=== PATIENT | male | born 1990 | race Caucasian/White ===

== ENCOUNTER 2018-03-29 17:14 | Observation (INO) | payer BC, OTHER ==
[2018-03-29] MEDS ORDERED: NA CHLORIDE 0.9% 1,000 ML ONE ×2 (18:08→20:36)
[2018-03-29] MEDS ORDERED: ONDANSETRON 4 MG/2 ML VIAL ONE (18:08)
[2018-03-29] MEDS ORDERED: MORPHINE 4 MG/ML SYR ONE (18:08)
[2018-03-29 18:44] LABS: ALT/SGPT 124 U/L (12-78); AST/SGOT 65 U/L (15-37); Albumin 4.7 g/dL (3.4-5.0); Alkaline Phosphatase 121 U/L (45-117); BUN Blood Urea Nitrogen 17 mg/dL (7-18); Bicarbonate 27 mmol/L (21-32); Bilirubin Direct 0.2 mg/dL (0-0.2); Bilirubin Total 0.7 mg/dL (0.2-1.0); Glucose Level 95 mg/dL (74-106); Lipase 146 U/L (73-393); Potassium 3.8 mmol/L (3.5-5.1); Protein, Total 8.7 g/dL (6.4-8.2); Sodium Level 141 mmol/L (136-145)
[2018-03-29 18:46] LABS: Absolute Lymphocytes (CBC) 2.4 K/uL (0.7-4.9); Absolute Monocytes 1.4 K/uL (0.1-1.3); Absolute Neutrophil 15.8 K/uL (1.8-8.0); Basophils % 0.3 % (0-1.3); Hematocrit 45.6 % (39.6-49.0); Lymphocytes % 12.4 % (15.3-44.8); MCH 30.1 pg (27.0-35.0); MCV 87.6 fL (80-100); MPV 8.8 fL (7.6-11.3); RBC Red Blood Cell Count 5.21 M/uL (4.33-5.43)
[2018-03-29 19:28] LABS: Blood Morphology Comment NOT SEEN (NOT SEEN); Platelet Estimate ADEQ; Urine White Blood Cell Casts OK
--- NOTE | 2018-03-29 20:07 | RAD REPORT ---
EXAM DESCRIPTION: CT - Abdomen Pelvis W Contrast - 03/29/2018 7:50 pm CLINICAL HISTORY: Right lower quadrant pain COMPARISON: CT study December 2014 TECHNIQUE: Biphasic, helical CT imaging of the abdomen and pelvis was performed following 100 ml non -ionic IV contrast. Oral contrast was given. All CT scans are performed using dose optimization technique as appropriate and may include automated exposure control or mA/KV adjustment according to patient size. FINDINGS: No suspicious findings in the lung bases. Liver shows diffuse fatty infiltration. No focal liver lesion. Spleen and pancreas show no suspicious findings. Gallbladder and biliary tree are also without suspicious finding. Symmetric renal function is seen with no hydronephrosis or suspicious renal mass. No pyelonephritis o r acute renal parenchymal process. Urinary bladder is normal. No gastric dilatation or gastric wall thickening. No acute small bowel finding. Moderate stool volume is present in the nondilated colon. Oral contrast has reached the hepatic flexure. No contrast is pr esent in the appendix. There are several small mesenteric lymph nodes in the right lower quadrant. Th e appendix is 10-2011 mm in diameter. No appendicolith. The appendix was 5- 6 mm in 2015. Senior of th e appendix are slightly thickened. There is trace stranding in the adjacent fat. No free air, free fluid or other inflammatory stranding. No hernia, mass or bulky lymphadenopathy. N o adrenal abnormality. No suspicious bony findings. IMPRESSION: Early appendicitis changes are present seen as mild dilatation, mild wall thickening and trace stranding in the adjacent fat. A few small mesenteric lymph nodes are present. Appendix findings represent a change from the 2015 comparison. No free air or free fluid. Diffuse fatty infiltration similar to comparison.
--- NOTE | 2018-03-29 20:12 | EDPHYS ---
Physician Documentation [facility] Name: Girish Llamas Age: 27 yrs Sex: Male : 1990 Arrival Date: 03/29/2018 Time: 17:19 Bed 24 Private MD: ED Physician Jose Galarza HPI: 03/29 19:36 This 27 yrs old Male presents to ER via Ambulatory with complaints of pm1 Abdominal Pain. 19:36 The patient presents with abdominal pain right lower quadrant. Onset: The pm1 symptoms/episode began/occurred today, at 15:30. The symptoms do not radiate. Associated signs and symptoms: Pertinent negatives: nausea, vomiting, and diarrhea, chest pain, dysuria, fever, shortness of breath, testicular pain. The symptoms are described as achy, constant. Modifying factors: The symptoms are alleviated by nothing, the symptoms are aggravated by touching the area, walking. Severity of pain: in the emergency department the pain is actually worse. The patient has not experienced similar symptoms in the past. The patient has not recently seen a physician, the patient's primary care provider is Dr. Mai. Historical: - Allergies: 17:30 No Known Allergies; sv - Home Meds: 17:30 Seroquel Oral [Active]; sv - PMHx: 17:30 Bipolar disorder; insomnia; sv - PSHx: 17:30 Tonsillectomy; Adenoids; sv - Immunization history:: Adult Immunizations up to date. - Social history:: Smoking status: Patient/guardian denies using tobacco. - Ebola Screening: : No symptoms or risks identified at this time. ROS: 19:37 Constitutional: Negative for fever, chills, and weight loss, Eyes: Negative for injury, pm1 pain, redness, and discharge, ENT: Negative for injury, pain, and discharge, Neck: Negative for injury, pain, and swelling, Cardiovascular: Negative for chest pain, palpitations, and edema, Respiratory: Negative for shortness of breath, cough, wheezing, and pleuritic chest pain. 19:37 Back: Negative for injury and pain, : Negative for injury, bleeding, discharge, and swelling, MS/Extremity: Negative for injury and deformity, Skin: Negative for injury, rash, and discoloration, Neuro: Negative for headache, weakness, numbness, tingling, and seizure. 19:37 Abdomen/GI: Positive for abdominal pain, of the right lower quadrant, Negative for nausea, vomiting, and diarrhea. Exam: 19:37 Constitutional: This is a well developed, well nourished patient who is awake, alert, pm1 and in no acute distress. Head/Face: Normocephalic, atraumatic. Eyes: Pupils equal round and reactive to light, extra-ocular motions intact. Lids and lashes normal. Conjunctiva and sclera are non-icteric and not injected. Cornea within normal limits. Periorbital areas with no swelling, redness, or edema. ENT: Nares patent. No nasal discharge, no septal abnormalities noted. Tympanic membranes are normal and external auditory canals are clear. Oropharynx with no redness, swelling, or masses, exudates, or evidence of obstruction, uvula midline. Mucous membranes moist. Neck: Trachea midline, no thyromegaly or masses palpated, and no cervical lymphadenopathy. Supple, full range of motion without nuchal rigidity, or vertebral point tenderness. No Meningismus. Chest/axilla: Normal chest wall appearance and motion. Nontender with no deformity. No lesions are appreciated. Cardiovascular: Regular rate and rhythm with a normal S1 and S2. No gallops, murmurs, or rubs. Normal PMI, no JVD. No pulse deficits. Respiratory: Lungs have equal breath sounds bilaterally, clear to auscultation and percussion. No rales, rhonchi or wheezes noted. No increased work of breathing, no retractions or nasal flaring. 19:37 Back: No spinal tenderness. No costovertebral tenderness. Full range of motion. Skin: Warm, dry with normal turgor. Normal color with no rashes, no lesions, and no evidence of cellulitis. MS/ Extremity: Pulses equal, no cyanosis. Neurovascular intact. Full, normal range of motion. 19:37 Abdomen/GI: Inspection: abdomen appears normal, Bowel sounds: normal, Palpation: soft, moderate abdominal tenderness, in the right lower quadrant, mass, is not appreciated, rebound tenderness, is appreciated in the right lower quadrant and left lower quadrant. 19:37 Neuro: Orientation: is normal, Motor: is normal, moves all fours. Vital Signs: 17:30 BP 136 / 85; Resp 22; Temp 97.9; Pulse Ox 99% ; Weight 89.81 kg; Height 5 ft. 6 in. sv (167.64 cm); Pain 6/10; 19:31 BP 121 / 77; Pulse 91; Resp 16; Pulse Ox 98% on R/A; lp1 20:30 BP 116 / 81; Pulse 111; Resp 16; Pulse Ox 100% on R/A; lp1 17:30 Body Mass Index 31.96 (89.81 kg, 167.64 cm) sv MDM: 17:32 Patient medically screened. pm1 19:40 Data reviewed: vital signs. Data interpreted: Pulse oximetry: on room air is 98 %. pm1 Interpretation: normal. 20:09 Counseling: I had a detailed discussion with the patient and/or guardian regarding: the pm1 historical points, exam findings, and any diagnostic results supporting the discharge/admit diagnosis, lab results, radiology results, the need for further work-up and treatment in the hospital. 20:30 Physician consultation: Higinio Ayers MD regarding admission, patient's condition, and pm1 will see patient shortly, Call OR team and will perform surgery shortly. 03/29 17:32 Order name: Basic Metabolic Panel; Complete Time: 19:09 pm1 03/29 17:32 Order name: CBC with Diff; Complete Time: 19:33 pm1 03/29 17:32 Order name: Creatinine for Radiology; Complete Time: 19:09 pm1 03/29 17:32 Order name: Hepatic Function; Complete Time: 19:09 pm1 03/29 17:32 Order name: Lipase; Complete Time: 19:09 pm1 03/29 19:26 Order name: CBC Smear Scan; Complete Time: 19:33 EDMS 03/29 17:32 Order name: IV Saline Lock; Complete Time: 18:26 pm1 03/29 17:32 Order name: Labs collected and sent; Complete Time: 18:26 pm1 03/29 17:38 Order name: CT Abd/Pelvis - W/Contrast: PO and IV contrast; Complete Time: 20:08 pm1 03/29 17:38 Order name: NPO; Complete Time: 17:59 pm1 Administered Medications: 18:26 Drug: morphine 4 mg Route: IVP; Site: left antecubital; aj1 20:00 Follow up: Response: Marked relief of symptoms lp1 18:26 Drug: Zofran 4 mg Route: IVP; Site: left antecubital; aj1 20:00 Follow up: Response: No adverse reaction lp1 18:26 Drug: NS 0.9% 1000 ml Route: IV; Rate: 1000 ml; Site: left antecubital; aj1 19:45 Follow up: IV Status: Completed infusion; IV Intake: 1000ml lp1 20:50 Drug: Zosyn 3.375 grams Route: IVPB; Infused Over: 60 mins; Site: left antecubital; lp1 21:07 Follow up: IV Status: Infusion continued upon admission lp1 20:51 Drug: NS 0.9% 1000 ml Route: IV; Rate: 100 ml/hr; Site: left antecubital; lp1 21:07 Follow up: IV Status: Infusion continued upon admission lp1 Disposition: 22:00 Co-signature as Attending Physician, Jose Galarza MD I agree with the assessment and kdr plan of care. Disposition: 03/29/18 20:11 Hospitalization ordered by Higinio Ayers for Observation. Preliminary diagnosis is Acute appendicitis. - Bed requested for Telemetry/MedSurg (observation). - Status is Observation. lp1 - Condition is Stable. - Problem is new. - Symptoms have improved. UTI on Admission? No Signatures: Dispatcher [employer] EDMS My iH RN RN aj1 Araseli Rodriguez RN JESSI Kristin Pak RN RN Jose Galarza MD MD [facility] Delma Huddleston RN RN lp1 Levar Grajeda, GLUE REEL OPERATOR GLUE REEL OPERATOR pm1 Corrections: (The following items were deleted from the chart) 20:18 20:11 Hospitalization Ordered by Higinio Ayers MD for Observation. Preliminary diagnosis is Acute appendicitis. Bed requested for Telemetry/MedSurg (observation). Status is Observation. Condition is Stable. Problem is new. Symptoms have improved. UTI on Admission? No. pm1 21:09 20:18 03/29/2018 20:11 Hospitalization Ordered by Higinio Ayers MD for Observation. lp1 Preliminary diagnosis is Acute appendicitis. Bed requested for Telemetry/MedSurg (observation). Status is Observation. Condition is Stable. Problem is new. Symptoms have improved. UTI on Admission? No. mw
--- NOTE | 2018-03-29 20:12 | ER ---
Nurse's Notes [facility] Name: Girish Llamas Age: 27 yrs Sex: Male : 1990 Arrival Date: 03/29/2018 Time: 17:19 Bed 24 Private MD: Diagnosis: Acute appendicitis Presentation: 03/29 17:29 Presenting complaint: Patient states: lower abd pain with RLQ greater that started sv today. Denies n/v. Last meal: 1130 today. Transition of care: patient was not received from another setting of care. Onset of symptoms. Care prior to arrival: None. 17:29 Method Of Arrival: Ambulatory sv 17:29 Acuity: JHONY 3 sv 19:31 Risk Assessment: Do you want to hurt yourself or someone else? Patient reports no lp1 desire to harm self or others. Initial Sepsis Screen: Does the patient meet any 2 criteria? No. Patient's initial sepsis screen is negative. Does the patient have a suspected source of infection? No. Patient's initial sepsis screen is negative. Historical: - Allergies: 17:30 No Known Allergies; sv - Home Meds: 17:30 Seroquel Oral [Active]; sv - PMHx: 17:30 Bipolar disorder; insomnia; sv - PSHx: 17:30 Tonsillectomy; Adenoids; sv - Immunization history:: Adult Immunizations up to date. - Social history:: Smoking status: Patient/guardian denies using tobacco. - Ebola Screening: : No symptoms or risks identified at this time. Screenin:23 Abuse screen: Denies threats or abuse. Denies injuries from another. Nutritional aj1 screening: No deficits noted. Tuberculosis screening: No symptoms or risk factors identified. 20:54 Fall Risk None identified. lp1 Assessment: 18:23 General: Appears in no apparent distress. uncomfortable, Behavior is calm, cooperative, aj1 appropriate for age. Pain: Complains of pain in right lower quadrant Pain does not radiate. Pain currently is 7 out of 10 on a pain scale. Quality of pain is described as sharp, stabbing, Pain began 4 hours ago. Is continuous, Aggravated by movement. Neuro: Level of Consciousness is awake, alert, obeys commands, Oriented to person, place, time, situation, Speech is normal, Facial symmetry appears normal. Cardiovascular: Patient's skin is warm and dry. Respiratory: Airway is patent Respiratory effort is even, unlabored, Respiratory pattern is regular, symmetrical. GI: Abdomen is non-distended, Bowel sounds present X 4 quads. Abd is soft X 4 quads Abdomen is tender to palpation in right lower quadrant Patient currently denies diarrhea, nausea, vomiting. : No signs and/or symptoms were reported regarding the genitourinary system. EENT: No signs and/or symptoms were reported regarding the EENT system. Derm: No signs and/or symptoms reported regarding the dermatologic system. Skin is pink, warm \T\ dry. normal. Musculoskeletal: No signs and/or symptoms reported regarding the musculoskeletal system. Circulation, motion, and sensation intact. 19:30 Reassessment: Patient appears in no apparent distress at this time. Patient is alert, lp1 oriented x 3, equal unlabored respirations, skin warm/dry/pink. Aware of waiting for CT scan Patient states feeling better. 20:45 Reassessment: Patient aware of plan for surgery, continuing NPO, states pain returning lp1 to RLQ at this time. Vital Signs: 17:30 BP 136 / 85; Resp 22; Temp 97.9; Pulse Ox 99% ; Weight 89.81 kg; Height 5 ft. 6 in. sv (167.64 cm); Pain 6/10; 19:31 BP 121 / 77; Pulse 91; Resp 16; Pulse Ox 98% on R/A; lp1 20:30 BP 116 / 81; Pulse 111; Resp 16; Pulse Ox 100% on R/A; lp1 17:30 Body Mass Index 31.96 (89.81 kg, 167.64 cm) sv ED Course: 17:19 Patient arrived in ED. mr 17:30 Triage completed. sv 17:31 Arm band placed on left wrist. sv 17:32 Levar Grajeda, TOBACCO PRIMER MACHINE OPERATOR is PHCP. pm1 17:32 Jose Galarza MD is Attending Physician. pm1 17:58 My Hi, RN is Primary Nurse. aj1 18:23 Patient has correct armband on for positive identification. Bed in low position. Call aj1 light in reach. Side rails up X 1. 18:23 No provider procedures requiring assistance completed. Initial lab(s) drawn, by ma, augusta sent to lab. Inserted saline lock: 22 gauge in left antecubital area, using aseptic technique. Blood collected. 19:50 CT Abd/Pelvis - W/Contrast: PO and IV contrast In Process Unspecified. EDMS 20:11 Higinio Ayers MD is Hospitalizing Provider. pm1 20:58 Patient admitted, IV remains in place. lp1 Administered Medications: 18:26 Drug: morphine 4 mg Route: IVP; Site: left antecubital; aj1 20:00 Follow up: Response: Marked relief of symptoms lp1 18:26 Drug: Zofran 4 mg Route: IVP; Site: left antecubital; aj1 20:00 Follow up: Response: No adverse reaction lp1 18:26 Drug: NS 0.9% 1000 ml Route: IV; Rate: 1000 ml; Site: left antecubital; aj1 19:45 Follow up: IV Status: Completed infusion; IV Intake: 1000ml lp1 20:50 Drug: Zosyn 3.375 grams Route: IVPB; Infused Over: 60 mins; Site: left antecubital; lp1 21:07 Follow up: IV Status: Infusion continued upon admission lp1 20:51 Drug: NS 0.9% 1000 ml Route: IV; Rate: 100 ml/hr; Site: left antecubital; lp1 21:07 Follow up: IV Status: Infusion continued upon admission lp1 Intake: 19:45 IV: 1000ml; Total: 1000ml. lp1 Outcome: 20:11 Decision to Hospitalize by Provider. pm1 20:58 Condition: stable lp1 20:58 Instructed on the need for admit. 21:06 Admitted to OR accompanied by nurse, via stretcher, with chart. lp1 21:09 Patient left the ED. lp1 Signatures: Dispatcher [employer] EDMS My Hi RN RN aj1 Araseli Rodriguez RN RN sv Rivera, Maria mr Pena, Laura, RN RN lp1 Levar Grajeda, ANETA TOBACCO PRIMER MACHINE OPERATOR pm1
[2018-03-29] MEDS ORDERED: PIPER/TAZO/NS 3.375gm 3.375 GM/100 ML BAG ONE (20:36)
[2018-03-29] MEDS ORDERED: BUPIVACAINE 0.5% PF 10 ML VIAL ONE (21:16)
[2018-03-29] MEDS ORDERED: SUCCINYLCHOLINE 20 MG/ML (10 ML) IV ONE ×2 (21:27→21:56)
--- NOTE | 2018-03-29 21:28 | P.BOP ---
Preoperative diagnosis: acute appendicitis Postoperative diagnosis: same Primary procedure: Laparoscopic appendectomy Estimated blood loss: <10 Specimen: jane Findings: as above Anesthesia: General Complications: None Transferred to: Recovery Room Condition: Good
[2018-03-29] MEDS ORDERED: MIDAZOLAM HCL 2 MG/2 ML INJ ONE (21:30)
[2018-03-29] MEDS ORDERED: PROPOFOL 200 MG/20 ML VIAL IV ONE ×3 (21:30→21:56)
[2018-03-29] MEDS ORDERED: ROCURONIUM 50 MG/5 ML VIAL IV ONE (21:30)
[2018-03-29] MEDS ORDERED: FENTANYL CITR 250 MCG/5 ML ONE (21:30)
[2018-03-29] MEDS ORDERED: HYDROCODONE/APAP 7.5/325 MG TAB PO PRN (21:53)
[2018-03-29] MEDS ORDERED: ACETAMINOPHEN 500 MG TAB PO PRN (21:53)
[2018-03-29] MEDS ORDERED: DEXAMETHASONE 10 MG/ML VIAL ONE (22:24)
[2018-03-29] MEDS ORDERED: NEOSTIGMINE 1 MG/ML -5 ML SYRINGE ONE (22:25)
[2018-03-29] MEDS ORDERED: GLYCOPYRROLATE 0.2 MG/ML SYR ONE (22:25)
[2018-03-29] MEDS ORDERED: KETOROLAC 30 MG/ML INJ IV ONE (22:54)
[2018-03-29] MEDS ORDERED: Ringers Lactate 1,000 ML IV ONE (22:54)
[2018-03-29] MEDS ORDERED: FENTANYL CITR 100 MCG/2 ML IV ONE ×2 (22:55→23:24)
[2018-03-29] MEDS ORDERED: KETOROLAC 30 MG/ML INJ ONE (23:00)
[2018-03-29] MEDS ORDERED: FENTANYL CITR 100 MCG/2 ML ONE (23:00)
[2018-03-30] MEDS: MORPHINE 4 MG/ML SYR IV PRN ×3 (00:04→15:17)
[2018-03-30] MEDS: NA CHLORIDE 0.9% 1,000 ML IV SCH ×2 (00:05→10:30)
--- NOTE | 2018-03-30 00:20 | OP ---
Date of Procedure: 03/29/2018 Surgeon: Higinio Ayers MD Preoperative Diagnosis: Acute appendicitis. Postoperative Diagnosis: Acute appendicitis. Procedure: Laparoscopic appendectomy. Anesthesia: General plus local. Indications: This is the case of a male who came to use with abdominal pain and peritonitis, fully e xplained the benefits, alternatives, and risks of laparoscopic, possible open appendectomy which incl ude but are not limited to infection, bleeding, damage to adjacent structures, anesthesia complicatio n, NH, and even . He also understands this may not relieve any symptoms and he might need more than one surgical intervention. He understood and signed a consent. Description Of Procedure: The patient was brought to the operating room and placed in the supine pos ition. Anesthesia was done without complication. Abdominal area was prepped and draped in a sterile fashion. Marcaine 0.5% injected for local anesthetic, followed by sharp incision of the skin in the infraumbilical region. Incision was carried down to fascia, which was opened under direct vision. Peritoneum was encountered, opened under direct vision. Vicryl #1 placed inside the fascia. Juan trocar was carefully introduced. No bleeding was obtained. I placed 2 more trocars, 5 mm each one o f them, in the suprapubic and left lower quadrant under direct visualization. The patient was placed in Trendelenburg position. The appendix was visualized. The base of the appendix looked spared fro m the inflammation, so we created a window in the base of the appendix, transected that with an Endo ANA LUISA 45 mm 3.5, and the mesoappendix with an Endo ANA LUISA 45 mm 2.5. Appendix removed from abdominal cavi ty using an EndoCatch through the umbilical incision. The area was inspected once again. No bowel l eak. No bleeding at least after irrigation and suction. At that moment, I proceeded to remove the t rocars under direct vision. Deflated pneumoperitoneum. Closed the fascia with #1 Vicryl irrigated t he subcutaneous tissues. Closed that with 3-0 chromic and skin with clinton. Sponge count and instr ument counts were correct. The patient tolerated the procedure well. The patient was sent to recove ry in stable condition. EJ/HUGO Voice ID: [id number] Report ID: [id number]
--- NOTE | 2018-03-30 05:16 | HP ---
Date of Admission: 03/29/2018 Diagnoses: Acute appendicitis. History Of Present Illness: This is the case of a 27-year-old patient, who comes to us with intracta ble abdominal pain associated with nausea and vomiting, started about 3 o'clock this afternoon to arash jessica. He denies any dysuria, hematuria, hematochezia, or melena. Denies any recent traveling out of the country. Denies any family member sick at home. Denies any pain like this before. Allergies: NONE. Medications: Seroquel. Past Medical Problems: Bipolar disorder. Past Surgical History: Included adenoid. Social History: He does not smoke. He does not drink alcohol. Review of Systems: Constitutional: Denies any fever or chills. Respiratory: Denies any shortness of breath. Gastrointestinal: As above. Genitourinary: Denies any dysuria or hematuria. Physical Examination: General: The patient is awake, alert. HEENT: Pupils equal and reactive, anicteric. Neck: Supple. Chest: Clear. Abdomen: Right lower quadrant tenderness with guarding and rebound. The patient had Rovsing sign is positive, psoas sign is positive with peritonitis. Rectal: Deferred. Breasts: Deferred. Pelvic: Deferred. Genitalia: Deferred. Extremities: Good capillary refill. Good peripheral pulses. Neuro: Cranial nerves 2 through 12 grossly within normal limits. Laboratory Data: Blood work shows WBC count of 19.6 with hemoglobin of 15.7, alkaline phosphate 129, total bilirubin of 0.7, potassium 3.8. CAT scan of the abdomen and pelvis, interpreted by Dr. Melissa núñez as appendicitis. Assessment And Plan: This is a 27-year-old patient with acute appendicitis. The benefits, alternati ves, and risks of laparoscopic, possible open appendectomy were fully explained to the patient which include but are not limited to infection, bleeding, damage to adjacent structures, anesthesia complic ation, negative appendix, LA, even . He also understands this may not relieve any symptoms and he might need more than one surgical intervention. He understood and signed a consent. The patient was immediately taken to the OR. EJ/HUGO Voice ID: [id number]
[2018-03-30 07:23] LABS: Urine Appearance CLEAR; Urine Bilirubin NEGATIVE (NEG); Urine Blood NEGATIVE (NEG); Urine Color YELLOW; Urine Glucose NEGATIVE (NEG); Urine Protein NEGATIVE (NEG); Urine Urobilinogen 0.2 mg/dL (0.2-1.0); Urine pH 5.5 (5.0-7.0)
[2018-03-30] MEDS: ONDANSETRON 4 MG/2 ML VIAL IV PRN ×2 (10:30→15:22)
[2018-03-30 14:17] LABS: Urine Microscopic Reflex NO UMIC
== END 2018-03-30 18:40 | disposition home or self-care (01) ==
LOC: ER 17:14 → ERHOLD 20:29 → 2ND 21:22
PROVIDERS: ADMIT Surgery; ATTEND Surgery
PROC: 0DTJ4ZZ Resection of Appendix, Percutaneous Endoscopic Approach (ICD-10-PCS; principal; 2018-03-29 21:15)
DX: K35.80 Unspecified acute appendicitis (principal); F31.9 Bipolar disorder, unspecified
CPT/HCPCS: 36415; 74177; 80048; 80076; 81003; 83605; 83690; 85025; 88304; 96361; 96365; 96375; 99285; G0378; J0330; J1100; J2250; J2405; J2543; J2710; J3010; J7030; Q9967

== ENCOUNTER 2020-04-10 19:49 | Emergency (ER) | payer BC ==
--- OUTSIDE RECORDS SUMMARY | 2020-04-10 19:51 | XMS REPORT | Continuity of Care Document ---
:1990 Author Organization [facility] t Address [address] [place] [address] Care Team Providers Name Role Phone Ottoniel Rasheed Attending Clinician Problems This patient has no known problems. Allergies, Adverse Reactions, Alerts This patient has no known allergies or adverse reactions. Medications This patient has no known medications. Procedures This patient has no known procedures. Encounters Start End Encounter Admission Attending Care Care Encounter Source Date/Time Date/Time Type Type Clinicians Facility Department ID 2019-08-10 2019-08-10 Emergency RAJENDRA Marquez [id number] 16:29:04 22:22:00 Velma Lux [id number] [place] [id number] Margaret [id number] Results This patient has no known results.
--- NOTE | 2020-04-10 20:15 | ER ---
Nurse's Notes [facility] Name: Girish Llamas Age: 29 yrs Sex: Male : 1990 Arrival Date: 04/10/2020 Time: 19:50 Bed 8 Private MD: Diagnosis: Superficial foreign body of right eyelid and periocular area Presentation: 04/10 19:55 Chief complaint: Patient states: Right eye pain for 30 min [employer]AMP [employer]. Possible foreign body, ll1 was climbing down out of the attic when pain started. Coronavirus screen: Client denies travel out of the [place] in the last 14 days. At this time, the client does not indicate any symptoms associated with coronavirus-19. Ebola Screen: Patient denies travel to an Ebola-affected area in the 21 days before illness onset. Initial Sepsis Screen: Does the patient meet any 2 criteria? HR > 90 bpm. No. Patient's initial sepsis screen is negative. Risk Assessment: Do you want to hurt yourself or someone else? Patient reports no desire to harm self or others. Onset of symptoms was April 10, 2020. 19:55 Method Of Arrival: Ambulatory 1 19:55 Acuity: JHONY 4 ll1 20:34 Initial Sepsis Screen: Does the patient have a suspected source of infection? No. mg2 Patient's initial sepsis screen is negative. Historical: - Allergies: 19:56 No Known Allergies; ll1 - PMHx: 19:56 Bipolar disorder; insomnia; ll1 - PSHx: 19:56 Tonsillectomy; Adenoids; Appendectomy; ll1 - Immunization history:: Flu vaccine is not up to date. - Social history:: Smoking status: Patient denies any tobacco usage or history of. - Family history:: not pertinent. - Hospitalizations: : No recent hospitalization is reported. Screenin:34 Abuse screen: Denies threats or abuse. Denies injuries from another. Nutritional mg2 screening: No deficits noted. Tuberculosis screening: No symptoms or risk factors identified. Fall Risk None identified. Assessment: 20:33 General: Appears in no apparent distress. comfortable, Behavior is calm, cooperative. mg2 Pain: Complains of pain in right eye. Neuro: Level of Consciousness is awake, alert, obeys commands, Oriented to person, place, time, situation. Cardiovascular: Capillary refill < 3 seconds Patient's skin is warm and dry. Respiratory: Airway is patent Respiratory effort is even, unlabored, Respiratory pattern is regular, symmetrical. GI: : No signs and/or symptoms were reported regarding the genitourinary system. EENT: Reports pain in right eye. Derm: Skin is intact, is healthy with good turgor, Skin is pink, warm \T\ dry. normal. Musculoskeletal: Circulation, motion, and sensation intact. Capillary refill < 3 seconds. Vital Signs: 19:55 BP 113 / 75; Pulse 99; Resp 17; Temp 98.2; Pulse Ox 96% ; Weight 84.37 kg; Height 5 ft. ll1 5 in. (165.10 cm); Pain 4/10; 19:55 Body Mass Index 30.95 (84.37 kg, 165.10 cm) ll1 ED Course: 19:50 Patient arrived in ED. cl3 19:56 Triage completed. ll1 19:57 Arm band placed on Patient placed in an exam room, on a stretcher. ll1 20:02 Chema Miner MD is Attending Physician. rn 20:12 Nakia Dozier is Primary Nurse. 20:34 Patient has correct armband on for positive identification. mg2 20:34 No provider procedures requiring assistance completed. Patient did not have IV access mg2 during this emergency room visit. Administered Medications: 20:15 Drug: Tetracaine Drops 0.5 % 1 drops {Note: medication administered by .} Route: Ophthalmic; Site: right eye; Outcome: 20:14 Discharge ordered by . rn 20:34 Discharged to home ambulatory. mg2 20:34 Condition: stable 20:34 Discharge instructions given to patient, Instructed on discharge instructions, follow up and referral plans. medication usage, Demonstrated understanding of instructions, follow-up care, medications, Prescriptions given X 1. 20:35 Patient left the ED. mg2 Signatures: Bryce Sierra RN RN Chema Miner MD MD rn [place], Winsy David Dejeuss RN RN [facility] [place] Shahbaz Spicer 3 Adolph Spicer RN RN ll1
--- NOTE | 2020-04-10 20:15 | EDPHYS ---
Physician Documentation [facility] Name: Girish Llamas Age: 29 yrs Sex: Male : 1990 Arrival Date: 04/10/2020 Time: 19:50 Bed 8 Private MD: ED Physician Chema Miner HPI: 04/10 20:11 This 29 yrs old Male presents to ER via Ambulatory with complaints of Eye rn Problem. 20:11 The patient is experiencing foreign body sensation, to the right eye. Onset: The rn symptoms/episode began/occurred just prior to arrival. Aggravated by blinking, rubbing. Patient wears glasses. Severity of symptoms: At their worst the symptoms were mild in the emergency department the symptoms are unchanged. The patient has not experienced similar symptoms in the past. Reports getting out of attic, felt something in right eye, now 30 minutes, not helped with flush, no direct trauma. . Historical: - Allergies: 19:56 No Known Allergies; ll1 - PMHx: 19:56 Bipolar disorder; insomnia; ll1 - PSHx: 19:56 Tonsillectomy; Adenoids; Appendectomy; ll1 - Immunization history:: Flu vaccine is not up to date. - Social history:: Smoking status: Patient denies any tobacco usage or history of. - Family history:: not pertinent. - Hospitalizations: : No recent hospitalization is reported. ROS: 20:11 Constitutional: Negative for fever, chills, and weight loss, Eyes: + right eye foreign rn body sensation Exam: 20:11 Constitutional: This is a well developed, well nourished patient who is awake, alert, rn and in no acute distress. Eyes: + clear drainage right eye, brown foreign body identified mid upper eyelid on right eye. Vital Signs: 19:55 BP 113 / 75; Pulse 99; Resp 17; Temp 98.2; Pulse Ox 96% ; Weight 84.37 kg; Height 5 ft. ll1 5 in. (165.10 cm); Pain 4/10; 19:55 Body Mass Index 30.95 (84.37 kg, 165.10 cm) ll1 Procedures: 20:11 Foreign Body Removal: unknown, from the right eye, by using a cotton-tipped swab, The rn patient tolerated the removal well, After tetracaine drops. MDM: 20:03 Patient medically screened. rn 20:11 Differential diagnosis: Foreign body in. Differential diagnosis: Foreign body in right rn eye. Data reviewed: vital signs, nurses notes, and as a result, I will discharge patient. Counseling: I had a detailed discussion with the patient and/or guardian regarding: the historical points, exam findings, and any diagnostic results supporting the discharge/admit diagnosis, the need for outpatient follow up, to return to the emergency department if symptoms worsen or persist or if there are any questions or concerns that arise at home. Special discussion: I discussed with the patient/guardian in detail that at this point there is no indication for admission to the hospital. It is understood, however, that if the symptoms persist or worsen the patient needs to return immediately for re-evaluation. Administered Medications: 20:15 Drug: Tetracaine Drops 0.5 % 1 drops {Note: medication administered by .} Route: Ophthalmic; Site: right eye; Disposition: 04/10/20 20:14 Discharged to Home. Impression: Superficial foreign body of right eyelid and periocular area. - Condition is Stable. - Discharge Instructions: Eye Foreign Body. - Prescriptions for Vigamox 0.5 % Ophthalmic Drops - instill 1 drop by OPHTHALMIC route every 8 hours for 7 days; 5 milliliter. - Medication Reconciliation Form, Thank You Letter, Antibiotic Education, Prescription Opioid Use form. - Follow up: Private Physician; When: As needed; Reason: Recheck today's complaints, Re-evaluation by your physician. - Problem is new. - Symptoms are resolved. Signatures: Bryce Sierra RN RN Chema Miner MD MD rn Gardose, Michele, RN RN mg2 Adolph Spicer RN RN ll1 Corrections: (The following items were deleted from the chart) 20:35 20:14 04/10/2020 20:14 Discharged to Home. Impression: Superficial foreign body of mg2 right eyelid and periocular area. Condition is Stable. Forms are Medication Reconciliation Form, Thank You Letter, Antibiotic Education, Prescription Opioid Use. Follow up: Private Physician; When: As needed; Reason: Recheck today's complaints, Re-evaluation by your physician. Problem is new. Symptoms are resolved. rn
[2020-04-10] MEDS ORDERED: TETRACAINE HCL 0.5% 4ML OPTH ONE ×2 (20:20→20:26)
== END 2020-04-10 20:35 | disposition home or self-care (01) ==
LOC: ER 19:49
PROC: 08C0XZZ Extirpation of Matter from Right Eye, External Approach (ICD-10-PCS; principal; 2020-04-10)
DX: T15.91XA Foreign body on external eye, part unspecified, right eye, initial encounter (principal)
CPT/HCPCS: 99283

== ENCOUNTER 2020-08-15 17:13 | Emergency (ER) | payer BC ==
--- OUTSIDE RECORDS SUMMARY | 2020-08-15 17:15 | XMS REPORT | Continuity of Care Document ---
:1990 Author Organization [facility] t Address [address] [place] [address] Care Team Providers Name Role Phone Ottoniel [...] Department ID 2019-08-10 2019-08-10 Emergency RAJENDRA Marquez [id number] 16:29:04 22:22:00 Velma Lux [id number] [place] [id number] [place] [phone] [id number] Results This patient has no known results.
--- NOTE | 2020-08-15 19:12 | ER ---
Nurse's Notes [facility] Name: Girish Llamas Age: 30 yrs Sex: Male : 1990 Arrival Date: 08/15/2020 Time: 17:14 Bed External Waiting Private MD: Diagnosis: Presentation: 08/15 17:19 Chief complaint: Patient states: CP and SOB began 30 min prior to EMS arrival. VSS ll1 except HR 115-120. 20 G L AC. Sinus tach on monitor. Coronavirus screen: Client denies travel out of the [place] in the last 14 days. chills, cough unrelated to allergies, diarrhea, difficulty breathing, fatigue, fever, muscle pain, nausea, shaking with chills, shortness of breath, vomiting. Client presents with at least one sign or symptom that may indicate coronavirus-19. Standard/surgical mask placed on the client. Ebola Screen: Patient denies travel to an Ebola-affected area in the 21 days before illness onset. Initial Sepsis Screen: Does the patient meet any 2 criteria? HR > 90 bpm. No. Patient's initial sepsis screen is negative. Does the patient have a suspected source of infection? No. Patient's initial sepsis screen is negative. Risk Assessment: Do you want to hurt yourself or someone else? Patient reports no desire to harm self or others. Onset of symptoms was August 15, 2020. 17:19 Method Of Arrival: EMS: [facility] 1 17:19 Acuity: JHONY 3 ll1 Historical: - Allergies: 17:19 No Known Allergies; ll1 - PMHx: 17:19 Bipolar disorder; insomnia; ll1 - PSHx: 17:19 Tonsillectomy; Adenoids; Appendectomy; ll1 - Immunization history:: Flu vaccine is not up to date. - Social history:: Smoking status: Patient denies any tobacco usage or history of. Assessment: 19:11 Reassessment: pt reports feeling better, symptoms resolved at this time. pt states sg needs to go home due to transportation not being available to take him to his home if he continues to wait here in the ER. Vital Signs: 17:19 BP 108 / 83; Pulse 106; Resp 20; Temp 98.3; Pulse Ox 99% on R/A; Weight 89.81 kg; ll1 Height 5 ft. 5 in. (165.10 cm); Pain 4/10; 17:19 Body Mass Index 32.95 (89.81 kg, 165.10 cm) 1 ED Course: 17:14 Patient arrived in ED. ll1 17:18 Arm band placed on. ll1 17:23 Triage completed. ll1 17:30 EKG completed in triage. Results shown to MD. 1 17:[address] Galarza. CP and SOB. 1 19:10 IV discontinued, intact, bleeding controlled, No redness/swelling at site. Pressure sg dressing applied. Administered Medications: No medications were administered Outcome: 19:11 Patient left the ED. sg 19:12 Eloped from waiting room, post triage evaluation and consult. see nursing notes sg 19:12 Condition: stable 19:12 Instructed on follow up and referral plans. safety practices, Demonstrated understanding of instructions. Signatures: Bryce Sierra, RN RN Adolph Spicer RN RN [facility]
--- NOTE | 2020-08-15 19:12 | EDPHYS ---
Physician Documentation [facility] Name: Girish Llamas Age: 30 yrs Sex: Male : 1990 Arrival Date: 08/15/2020 Time: 17:14 Bed External Waiting Private MD: LINDA Physician Historical: - Allergies: 08/15 17:19 No Known Allergies; ll1 - PMHx: 17:19 Bipolar disorder; insomnia; ll1 - PSHx: 17:19 Tonsillectomy; Adenoids; Appendectomy; ll1 - Immunization history:: Flu vaccine is not up to date. - Social history:: Smoking status: Patient denies any tobacco usage or history of. Exam: 18:25 ECG was reviewed by the Attending Physician. [facility] Vital Signs: 17:19 BP 108 / 83; Pulse 106; Resp 20; Temp 98.3; Pulse Ox 99% on R/A; Weight 89.81 kg; ll1 Height 5 ft. 5 in. (165.10 cm); Pain 4/10; 17:19 Body Mass Index 32.95 (89.81 kg, 165.10 cm) ll1 EC:25 Rate is 101 beats/min. Rhythm is regular, Sinus Rhythm with No ectopy. QRS [place] is kdr Normal. [place] interval is normal. QRS interval is normal. QT interval is normal. Clinical impression: NSR w/ Non-specific ST/T Changes. Administered Medications: No medications were administered Disposition: 08/15/20 19:11 Patient left the facility post triage evaluation and consult. - Patient left due to (see nurse's notes). - Condition is Stable. Signatures: Bryce Sierra RN RN Jose Galarza MD MD [facility] Adolph Spicer RN RN 1
[2020-08-15 19:58] VITALS: BP 108/83; TEMP 98.3; O2SAT 99
== END 2020-08-15 19:11 | disposition left against medical advice (07) ==
LOC: ER 17:13
DX: Z53.21 Procedure and treatment not carried out due to patient leaving prior to being seen by health care provider (principal)
CPT/HCPCS: 93005; 99283

== ENCOUNTER 2023-06-09 19:34 | Emergency (ER) | payer BC ==
--- OUTSIDE RECORDS SUMMARY | 2023-06-09 19:38 | XMS REPORT | Continuity of Care Document ---
:1990 Author Organization [facility] t Address [address] [facility] [place] [address] Care Team Providers Name Role Phone Crystal Olsen Primary Care Physician CRYSTAL VALENCIA Attending Clinician Unavailable Doctor Unassigned, [place] Attending Clinician Unavailable Crystal Olsen Attending Clinician MATT AGARWAL Attending Clinician Unavailable Matt Agarwal MD Attending Clinician 2, [facility] Attending Clinician Unavailable Lab, Ang - Db Attending Clinician Unavailable DANILO Attending Clinician Unavailable MARK LEONE Attending Clinician Unavailable GC_SEFP_Rivera_A Attending Clinician Unavailable Velma Rasheed Attending Clinician MATT AGARWAL Admitting Clinician Unavailable DANILO Admitting Clinician Unavailable PADMINI_SEFP_Rivera_A Admitting Clinician Unavailable Payers Payer Name Policy Type Policy Number Effective Date Expiration Date S [place] [id number] 2020 00:00:00 [place] Problems Condition Condition Condition Status Onset Resolution Last Treating Co mments Source Name Details Category Date Date Treatment Clinician Date Elevated Elevated Disease Active 2021-07 Unive rs LFTs LFTs 2-03 ity of 00:00: [address] Branch Obesity Obesity Disease Active 2021-07 Univers (BMI (BMI 2-03 ity of 30-39.9) 30-39.9) 00:00: [address] [place] No known No known Disease Unive rs active active ity of problems problems [facility] Allergies, Adverse Reactions, Alerts Allergy Allergy Status Severity Reaction(s) Onset Inactive Treating Comm ents Source Name Type Date Date Clinician NO KNOWN Drug Active Univers ALLERGIE Class ity of S [facility] Social History Social Habit Start Date Stop Date Quantity Comments Source History SDOH University o f Alcohol Frequency [facility] edical [place] History [facility] University o f Alcohol Std Drinks [facility] Sexual orientation Univer sity of [facility] History [facility] University o f Alcohol Binge [place] [facility] Branch Exposure to 2022-11-16 2022-11-[address] [facility] SARS-CoV-2 (event) 00:00:00 07:07:00 [facility] History of Social 2022-11-26 2022-11-26 Univers ity of function 00:00:00 00:00:00 [facility] Alcohol intake 2022-06-11 2022-06-11 Current drinker Unive rsity of 00:00:00 00:00:00 of alcohol [facility] (finding) [place] Tobacco use and 2021-10-30 2021-10-30 Smokeless Universit y of exposure 00:00:00 00:00:00 tobacco [facility]-user [facility] Comment 2021-10-30 2021-10-30 once every Universit y of 00:00:00 00:00:00 couple of weeks. [facility] Sex Ass[birth year] At [birth year] Universit y of 00:00:00 00:00:00 [facility] Smoking Status Start Date Stop Date Source Never smoked tobacco [facility] Medications Ordered Filled Start Stop Current Ordering Indication Dosage Frequency Signature Comments Components Source Medication Medication Date Date Medication? Clinician (SIG) Name Name montelukast Yes [id number] 10mg Take 1 Univers 10 mg 5-18 tablet by ity of tablet 00:00: mouth in [place] the morning. Branch azelastine Yes [id number] 1{spray Use 1 Univers 137 mcg 5-18 } [place] in ity of (0.1 %) 00:00: each [place] nasal spray 00 nostril in [facility] morning and 1 [place] in the evening. Use in each nostril as directed montelukast 2023-0 Yes [id number] 10mg Take 1 Univers 10 mg 5-18 tablet by ity of tablet 00:00: mouth in [place] the morning. [place] azelastine 2022-0 Yes [id number] 1{spray Use 1 Univers 137 mcg 5-18 } [place] in ity of (0.1 %) 00:00: each [place] nasal spray 00 nostril in [facility] morning and 1 [place] in the evening. Use in each nostril as directed montelukast 2022-0 Yes [id number] 10mg Take 1 Univers 10 mg 5-18 tablet by ity of tablet 00:00: mouth in [place] the morning. [place] azelastine 0 Yes [id number] 1{spray Use 1 Univers 137 mcg 5-18 } [place] in ity of (0.1 %) 00:00: each [place] nasal spray 00 nostril in [facility] morning and 1 [place] in the evening. Use in each nostril as directed montelukast 0 Yes [id number] 10mg Take 1 Univers 10 mg 5-18 tablet by ity of tablet 00:00: mouth in [place] the morning. [place] azelastine 0 Yes [id number] 1{spray Use 1 Univers 137 mcg 5-18 } [place] in ity of (0.1 %) 00:00: each [place] nasal spray 00 nostril in [facility] morning and 1 [place] in the evening. Use in each nostril as directed montelukast 2022-0 Yes [id number] 10mg Take 1 Univers 10 mg 5-18 tablet by ity of tablet 00:00: mouth in [place] the morning. [place] azelastine 0 Yes [id number] 1{spray Use 1 Univers 137 mcg 5-18 } [place] in ity of (0.1 %) 00:00: each [place] nasal spray 00 nostril in [facility] morning and 1 [place] in the evening. Use in each nostril as directed FLUoxetine Yes TAKE ONE Uni vers 20 mg 4-12 (1) ity of capsule 00:00[place] ON[place] Medical A DAY. [place] FLUoxetine 0 Yes TAKE ONE Uni vers 20 mg 4-12 (1) ity of capsule 00:00[place] MOUTH ONCE Medical A DAY. Branch FLUoxetine 3-0 Yes TAKE ONE Uni vers 20 mg 4-12 (1) ity of capsule 00:00: [place] MOUTH ONCE Medical A DAY. Branch FLUoxetine 3-0 Yes TAKE ONE Uni vers 20 mg 4-12 (1) ity of capsule 00:00: [place] 00 MOUTH ONCE Medical A DAY. Branch FLUoxetine 3-0 Yes TAKE ONE Uni vers 20 mg 4-12 (1) ity of capsule 00:00: [place] 00 MOUTH ONCE Medical A DAY. Branch propranoloL 3-0 Yes [id number] 20mg Take 1 Univers 20 mg 1-13 tablet by ity of tablet 00:00: mouth in [place] [address] [facility] morning [place] and 1 tablet in the evening. propranoloL 2023-0 Yes [id number] 20mg Take 1 Univers 20 mg 1-13 tablet by ity of tablet 00:00: mouth in [address] morning [place] and 1 tablet in the evening. propranoloL 2023-0 Yes [id number] 20mg Take 1 Univers 20 mg 1-13 tablet by ity of tablet 00:00: mouth in [place] [address] [facility] morning [place] and 1 tablet in the evening. propranoloL 2023-0 Yes [id number] 20mg Take 1 Univers 20 mg 1-13 tablet by ity of tablet 00:00: mouth in [place] [address] [facility] morning [place] and 1 tablet in the evening. propranoloL 2023-0 Yes [id number] 20mg Take 1 Univers 20 mg 1-13 tablet by ity of tablet 00:00: mouth in [place] [address] [facility] morning [place] and 1 tablet in the evening. propranoloL 2023-0 Yes [id number] 20mg Take 1 Univers 20 mg 1-13 tablet by ity of tablet 00:00: mouth in [place] [address] [facility] morning [place] and 1 tablet in the evening. Quetiapine 2021-2021- No Take by Uni vers 150 mg 0-21 10-21 mouth. ity of tablet 14:16: 00:00 [place] 18 :00 [facility] Quetiapine 2021-2021- No Take by Uni vers 150 mg 0-21 10-21 mouth. ity of tablet 14:16: 00:00 [place] 18 :00 [facility] QUEtiapine 2021-0 Yes TAKE 1 Unive rs 200 mg 9-21 TABLET BY ity of tablet 00:00: MOUTH 00 EVERY Medical NIGHT WITH Branch A 50MG TABLET QUEtiapine 2022-0 Yes TAKE 1 Unive rs 50 mg 9-21 TABLET BY ity of tablet 00:00: MOUTH 00 EVERY Medical NIGHT WITH Branch A 200MG TABLET, FOR 250MG TOTAL EACH NIGHT QUEtiapine 2022-0 Yes TAKE 1 Unive rs 200 mg 9-21 TABLET BY ity of tablet 00:00: MOUTH 00 EVERY Medical NIGHT WITH Branch A 50MG TABLET QUEtiapine 2022-0 Yes TAKE 1 Unive rs 50 mg 9-21 TABLET BY ity of tablet 00:00: MOUTH 00 EVERY Medical NIGHT WITH Branch A 200MG TABLET, FOR 250MG TOTAL EACH NIGHT QUEtiapine 2022-0 Yes TAKE 1 Unive rs 200 mg 9-21 TABLET BY ity of tablet 00:00: MOUTH 00 EVERY Medical NIGHT WITH Branch A 50MG TABLET QUEtiapine 2022-0 Yes TAKE 1 Unive rs 50 mg 9-21 TABLET BY ity of tablet 00:00: MOUTH EVERY Medical NIGHT WITH Branch A 200MG TABLET, FOR 250MG TOTAL EACH NIGHT QUEtiapine 2022-0 Yes TAKE 1 Unive rs 200 mg 9-21 TABLET BY ity of tablet 00:00: MOUTH 00 EVERY Medical NIGHT WITH Branch A 50MG TABLET QUEtiapine 2022-0 Yes TAKE 1 Unive rs 50 mg 9-21 TABLET BY ity of tablet 00:00: MOUTH 00 EVERY Medical NIGHT WITH Branch A 200MG TABLET, FOR 250MG TOTAL EACH NIGHT QUEtiapine 2022-0 Yes TAKE 1 Unive rs 200 mg 9-21 TABLET BY ity of tablet 00:00: MOUTH 00 EVERY Medical NIGHT WITH Branch A 50MG TABLET QUEtiapine 2022-0 Yes TAKE 1 Unive rs 50 mg 9-21 TABLET BY ity of tablet 00:00: MOUTH 00 EVERY Medical NIGHT WITH Branch A 200MG TABLET, FOR 250MG TOTAL EACH NIGHT QUEtiapine 2022-0 Yes TAKE 1 Unive rs 200 mg 9-21 TABLET BY ity of tablet 00:00: MOUTH 00 EVERY Medical NIGHT WITH Branch A 50MG TABLET QUEtiapine 2022-0 Yes TAKE 1 Unive rs 50 mg 9-21 TABLET BY ity of tablet 00:00: MOUTH 00 EVERY Medical NIGHT WITH Branch A 200MG TABLET, FOR 250MG TOTAL EACH NIGHT QUEtiapine 2022-0 Yes TAKE 1 Unive rs 200 mg 9-21 TABLET BY ity of tablet 00:00: MOUTH [place] 00 EVERY Medical NIGHT WITH Branch A 50MG TABLET QUEtiapine 2022-0 Yes TAKE 1 Unive rs 50 mg 9-21 TABLET BY ity of tablet 00:00: MOUTH 00 EVERY Medical NIGHT WITH Branch A 200MG TABLET, FOR 250MG TOTAL EACH NIGHT QUEtiapine 2022-0 Yes TAKE 1 Unive rs 200 mg 9-21 TABLET BY ity of tablet 00:00: MOUTH 00 EVERY Medical NIGHT WITH Branch A 50MG TABLET QUEtiapine 2022-0 Yes TAKE 1 Unive rs 50 mg 9-21 TABLET BY ity of tablet 00:00: MOUTH 00 EVERY Medical NIGHT WITH Branch A 200MG TABLET, FOR 250MG TOTAL EACH NIGHT QUEtiapine 2022-0 Yes TAKE 1 Unive rs 200 mg 9-21 TABLET BY ity of tablet 00:00: MOUTH 00 EVERY Medical NIGHT WITH Branch A 50MG TABLET QUEtiapine 2022-0 Yes TAKE 1 Unive rs 50 mg 9-21 TABLET BY ity of tablet 00:00: MOUTH 00 EVERY Medical NIGHT WITH Branch A 200MG TABLET, FOR 250MG TOTAL EACH NIGHT QUEtiapine 2022-0 Yes TAKE 1 Unive rs 200 mg 9-21 TABLET BY ity of tablet 00:00: MOUTH 00 EVERY Medical NIGHT WITH Branch A 50MG TABLET QUEtiapine 2022-0 Yes TAKE 1 Unive rs 50 mg 9-21 TABLET BY ity of tablet 00:00: MOUTH 00 EVERY Medical NIGHT WITH Branch A 200MG TABLET, FOR 250MG TOTAL EACH NIGHT QUEtiapine 2022-0 Yes TAKE 1 Unive rs 200 mg 9-21 TABLET BY ity of tablet 00:00: MOUTH 00 EVERY Medical NIGHT WITH Branch A 50MG TABLET QUEtiapine 2022-0 Yes TAKE 1 Unive rs 50 mg 9-21 TABLET BY ity of tablet 00:00: MOUTH 00 EVERY Medical NIGHT WITH Branch A 200MG TABLET, FOR 250MG TOTAL EACH NIGHT QUEtiapine 2022-0 Yes TAKE 1 Unive rs 200 mg 9-21 TABLET BY ity of tablet 00:00: MOUTH 00 EVERY Medical NIGHT WITH Branch A 50MG TABLET QUEtiapine 2022-0 Yes TAKE 1 Unive rs 50 mg 9-21 TABLET BY ity of tablet 00:00: MOUTH [place] 00 EVERY Medical NIGHT WITH Branch A 200MG TABLET, FOR 250MG TOTAL EACH NIGHT QUEtiapine 2022-0 Yes TAKE 1 Unive rs 200 mg 9-21 TABLET BY ity of tablet 00:00: MOUTH [place] 00 EVERY Medical NIGHT WITH Branch A 50MG TABLET QUEtiapine 2022-0 Yes TAKE 1 Unive rs 50 mg 9-21 TABLET BY ity of tablet 00:00: MOUTH [place] 00 EVERY Medical NIGHT WITH Branch A 200MG TABLET, FOR 250MG TOTAL EACH NIGHT QUEtiapine 2022-0 Yes TAKE 1 Unive rs 200 mg 9-21 TABLET BY ity of tablet 00:00: MOUTH [place] 00 EVERY Medical NIGHT WITH Branch A 50MG TABLET QUEtiapine 2022-0 Yes TAKE 1 Unive rs 50 mg 9-21 TABLET BY ity of tablet 00:00: MOUTH [place] 00 EVERY Medical NIGHT WITH Branch A 200MG TABLET, FOR 250MG TOTAL EACH NIGHT QUEtiapine 2022-0 Yes TAKE 1 Unive rs 200 mg 9-21 TABLET BY ity of tablet 00:00: MOUTH [place] 00 EVERY Medical NIGHT WITH Branch A 50MG TABLET QUEtiapine 2022-0 Yes TAKE 1 Unive rs 50 mg 9-21 TABLET BY ity of tablet 00:00: MOUTH [place] 00 EVERY Medical NIGHT WITH Branch A 200MG TABLET, FOR 250MG TOTAL EACH NIGHT QUEtiapine 2022-0 Yes TAKE 1 Unive rs 200 mg 9-21 TABLET BY ity of tablet 00:00: MOUTH [place] 00 EVERY Medical NIGHT WITH Branch A 50MG TABLET QUEtiapine 2022-0 Yes TAKE 1 Unive rs 50 mg 9-21 TABLET BY ity of tablet 00:00: MOUTH [place] 00 EVERY Medical NIGHT WITH Branch A 200MG TABLET, FOR 250MG TOTAL EACH NIGHT Quetiapine 2022-0 Yes Take by Univ ers 150 mg 4-21 mouth. ity of tablet 14:19: [place] 14 Medical Branch Quetiapine 2022-0 Yes Take by Univ ers 150 mg 4-21 mouth. ity of tablet 14:19: [place] 14 Medical Branch mupirocin 2 2021-0 Yes [id number] Apply to Univers % ointment 4-21 area(s) 3 ity of 00:00: (three) [place] 00 times Medical daily. Branch mupirocin 2 2021-0 Yes [id number] Apply to Univers % ointment 4-21 area(s) 3 ity of 00:00: (three) [place] 00 times Medical daily. Branch mupirocin 2 2021- No [id number] Apply to Univers % ointment 4-21 10-21 area(s) 3 ity of 00:00: 00:00 (three) [place] 00 :00 times Medical daily. Branch mupirocin 2 0 2021- No [id number] Apply to Univers % ointment 4-21 10-21 area(s) 3 ity of 00:00: 00:00 (three) [place] 00 :00 times Medical daily. Branch sulfamethox 2021- No [id number] 1{tbl} Take 1 Univers azole-trime -11-07 tablet by it y of 00:00: 04:59 mouth 2 [place] (BACTRIM 00 :00 (two) Medical DS) 800-160 times Branch mg per daily for tablet 7 days. gabapentin Yes Univers 300 mg 4-18 ity of capsule 00:00: [place] 00 Medical Branch gabapentin 2021-0 Yes Univers 300 mg 4-18 ity of capsule 00:00: 00 Medical Branch gabapentin 2021-0 2021- No Univer s 300 mg 4-18 -21 ity of capsule 00:00: 00:00 [place] 00 :00 Medical Branch gabapentin 2021-0 2021- No Univer s 300 mg 4-18 -21 ity of capsule 00:00: 00:00 [place] 00 :00 Medical Branch FLUoxetine 2021-0 2021- No Univer s 20 mg 4-18 04-21 ity of capsule 00:00: 00:00 [place] 00 :00 Medical Branch QUEtiapine 2021-0 2021- No TAKE 1 Univ ers 200 mg -05 11- TABLET BY ity of tablet 00:00: 00:00 MOUTH [place] 00 :00 EVERY Medical NIGHT WITH Branch A 50MG TABLET QUEtiapine 2021-0 2021- No TAKE 1 Univ ers 50 mg 3-05 11- TABLET BY ity of tablet 00:00: 00:00 MOUTH [place] 00 :00 EVERY Medical NIGHT WITH Branch A 200MG TABLET, FOR 250MG TOTAL EACH NIGHT ondansetron 2021- No [id number] 8mg Take 1 Univers (ZOFRAN) 8 130 04-21 tablet by ity of mg tablet 00:00: 00:00 mouth [place] 00 :00 every 8 Medical (eight) Branch hours as needed for Nausea and Vomiting (N/V). Vital Signs Vital Name Observation Time Observation Value Comments Source Systolic blood 2022-11-26 12:30:00 103 mm[Hg] Univer sity of [facility] Diastolic blood 2022-11-26 12:30:00 67 mm[Hg] Unive rsity of [facility] Heart rate 2022-11-26 12:30:00 93 /min Universi ty of [facility] Body temperature 2022-11-26 12:30:00 36.89 [place] Univ ersity [facility] Body height 2022-11-26 12:30:00 165.1 cm Universi ty of [facility] Body weight 2022-11-26 12:30:00 92.398 kg Universi ty [facility] BMI 2022-11-26 12:30:00 33.90 kg/m2 Universi ty [facility] Oxygen saturation in 2022-11-26 12:30:00 98 /min University of Arterial blood by [facility] Pulse oximetry Branch Systolic blood 2022-06-11 20:11:00 106 mm[Hg] Univer sity of [facility] Diastolic blood 2022-06-11 20:11:00 72 mm[Hg] Unive rsity of [facility] Heart rate 2022-06-11 20:11:00 87 /min Universi ty of [facility] Body temperature 2022-06-11 20:11:00 36.72 [place] [facility] [place] [facility] ersity [facility] Respiratory rate 2022-06-11 20:11:00 16 /min Univ ersity [facility] Body height 2022-06-11 20:11:00 165.1 cm Universi ty of [facility] Body weight 2022-06-11 20:11:00 90.901 kg Universi ty of [facility] BMI 2022-06-11 20:11:00 33.35 kg/m2 Universi ty of [facility] Oxygen saturation in 2022-06-11 20:11:00 97 /min University of Arterial blood by [place] [facility] Pulse oximetry Branch Systolic blood 2022-05-01 19:15:00 113 mm[Hg] Univer sity of pressure [place] [facility] Diastolic blood 2022-05-01 19:15:00 79 mm[Hg] Unive rsity of pressure [place] [facility] Heart rate 2022-05-01 19:15:00 89 /min Universi ty of [place] [facility] Body temperature 2022-05-01 19:15:00 36.78 [place] Univ ersity of [place] [facility] Body height 2022-05-01 19:15:00 165.1 cm Universi ty of [place] [facility] Body weight 2022-05-01 19:15:00 92.035 kg Universi ty of [place] [facility] BMI 2022-05-01 19:15:00 33.76 kg/m2 Universi ty of [place] [facility] Oxygen saturation in 2022-05-01 19:15:00 100 /min University of Arterial blood by [place] Medi bharat Pulse oximetry Branch Systolic blood 2021-10-30 18:56:00 125 mm[Hg] Univer sity of pressure [place] [facility] Diastolic blood 2021-10-30 18:56:00 85 mm[Hg] Unive rsity of pressure [place] [facility] Heart rate 2021-10-30 18:56:00 96 /min Universi ty of [place] [facility] Body temperature 2021-10-30 18:56:00 36.89 [place] Univ ersity of [place] [facility] Body height 2021-10-30 18:56:00 165.1 cm Universi ty of [place] [facility] Body weight 2021-10-30 18:56:00 92.534 kg Universi ty of [place] [facility] BMI 2021-10-30 18:56:00 33.95 kg/m2 Universi ty of [place] [facility] Oxygen saturation in 2021-10-30 18:56:00 97 /min University of Arterial blood by [facility] bharat Pulse oximetry Branch Procedures Procedure Date / Time Performed Performing Clinician [facility] e EXTERNAL PROVIDER 2021-11-10 05:01:00 Doctor [facility]igned, [facility] Name Medical Branch Encounters Start End Encounter Admission Attending Care Care Encounter Source Date/Time Date/Time Type Type Clinicians Facility Department ID 2022-12-31 2022-12-31 Patient Doctor CANDI [id number] [id number] Univers 00:00:00 00:00:00 Secure Msg Unassigned, RASHEEDA 350.1.13.10 ity of [place] [facility] [id number] [place] as [phone] [address] 2022-12-03 2022-12-03 Patient Doctor [facility] [id number] Univers 00:00:00 00:00:00 Secure Msg Unassigned, HEALTH [id number] ity of [place] [facility] [id number] [place] as ZARI?BLEA [id number] [address] MEDICAL OFFICE [facility] 2022-11-27 2022-11-27 Telephone Annie [facility] [id number] Univers 00:00:00 00:00:00 Crystal Vicente HEALTH [id number] i ty of [facility] [id number] [place] as ZARI?BLEA [phone] [address] OFFICE [facility] 2022-11-26 2022-11-26 Outpatient R ANNIE [facility] [id number] Univers 07:54:01 23:59:00 CRYSTAL ity of [facility] 2022-11-26 2022-11-26 [facility] 1.2.840.114 [id number] Univers 07:30:00 07:52:20 Visit Crystal Vicente HEALTH [id number] i ty of [place] [id number] [place] as ZARI?BLEA [phone] [address] MEDICAL OFFICE [facility] 2022-08-24 2022-08-24 Outpatient R ANY [facility] [id number] Univers 10:40:00 10:40:00 MATT russo o f [facility] 2022-07-23 2022-07-23 Patient Any [facility] 1.2.840.114 [id number] Univers 00:00:00 00:00:00 Secure Msg Qiangjun [place] [id number] ity of [id number] [id number] [place] [id number] [facility] 2022-07-14 2022-07-14 [facility] [id number] Univers 00:00:00 00:00:00 Matt DUNBARTON [id number] ity of [id number] [id number] [address] 2022-07-10 2022-07-10 Patient [facility] 1.2.840.114 [id number] Univers 00:00:00 00:00:00 Secure Msg Matt LUX [id number] ity [facility] [id number] [id number] [address] 2022-07-09 2022-07-09 Outpatient R [facility] [id number] Univers 13:00:00 23:59:00 MAURISIOIDA francey o [facility] 2022-07-08 2022-07-08 Outpatient R [facility] [id number] Univers 08:30:00 23:59:00 MATT ity o [facility] 2022-06-30 2022-06-30 [facility] [id number] Univers 00:00:00 00:00:00 CRYSTAL francebree [facility] 2022-06-13 2022-06-13 [facility] [id number] Univers 00:00:00 00:00:00 Crystal [facility] [id number] i ty of [facility] [id number] [place] as ZARI?BLEA [phone] Nh daren [address] 2022-06-12 2022-06-12 Patient [facility] 1.2.840.114 [id number] Univers 00:00:00 00:00:00 Secure Msg Matt LUX 350.1.13.10 ity of [place] [id number] N[address] 2022-06-11 2022-06-11 [employer] 2, Adc Lab [facility] 1.2.840.114 [id number] Univers 14:45:00 15:00:00 Visit Matt Agarwal 350.1.13.10 ity [facility] [id number] [phone] [facility] 353 [facility] 2022-06-11 2022-06-11 [facility] [id number] Univers 14:00:00 14:29:27 MATT ity o f [facility] 2022-06-11 2022-06-11 [facility] 1.2.840.114 [id number] Univers 14:00:00 14:29:27 Visit Matt LUX 350.1.13.10 [facility]y [facility] 4.2.[place].2.[place] [id number] [facility] 059 [facility] 2022-05-01 2022-05-01 [employer] Lab, Ang - Db [facility] [id number] Univers 15:00:00 16:23:07 Visit Annie Crystal A HEALTH 350.1.13.10 ity of [place] [id number] [place] as ZARI?BLEA [id number] [facility] [address] [facility] 2022-05-01 2022-05-01 Outpatient [facility] [id number] Univers 14:30:00 14:53:05 CRYSTAL itbree [facility] 2022-05-01 2022-05-01 Office [facility] [id number] Univers 14:30:00 14:53:05 Visit Crystal A HEALTH 350.1.13.10 i ty of [facility] [id number] [place] as ZARI?BLEA [id number] [facility] [address] [facility] 2022-02-06 2022-02-06 Outpatient FERDUANE_TOBIN [facility]O [facility] 814 [place] 00:00:00 00:00:00 HN [id number] [facility] 2022-01-02 2022-01-02 Outpatient R ANNIE [facility] [id number] Univers 14:30:00 14:30:00 CRYSTAL russo [facility] 2021-11-10 2021-11-10 Outpatient R VASU [facility] [id number] Univers 14:30:00 14:30:00 MARK karan [facility] 2021-11-10 2021-11-10 Orders Doctor CANDI [id number] [id number] Univers 00:00:00 00:00:00 Only Unassigned, RASHEEDA 350.1.13.10 ity of [place] [facility] [id number] [place] as [id number] [address] 2021-11-06 2021-11-06 Outpatient Spark[facility] [id number] Univers 07:30:00 07:30:00 CRYSTAL russo [facility] 2021-10-30 2021-10-30 Outpatient [facility] [id number] Univers 14:00:00 14:26:51 CRYSTAL russo [facility] 2021-10-30 2021-10-30 Office [facility] 1.2.840.114 [id number] Univers 14:00:00 14:26:51 Visit Crystal A [facility] 350.1.13.10 i ty of [place] [id number] [place] as ZARI?BLEA [phone] Nh daren [address] MEDICAL OFFICE BUILDING 2021-10-30 2021-10-30 Orders Doctor CANDI [id number] [id number] Univers 00:00:00 00:00:00 Only Unassigned, RASHEEDA 350.1.13.10 ity of [place] [facility] [id number] [place] as [phone] [address] 2021-10-21 2021-10-21 Outpatient GC_SEFP_Riv PRIV PRIV [id number] [facility] 04:05:00 04:05:00 era_A [id number] Medica l 2019-08-10 2019-08-10 Emergency Jimmy [facility] [id number] 16:29:04 22:22:00 Velma Lux [id number] [place] [id number] [place] [id number] Results This patient has no known results.
--- NOTE | 2023-06-09 23:03 | ER ---
Nurse's Notes [facility] Name: Girish Llamas Age: 32 yrs Sex: Male : 1990 Arrival Date: 06/09/2023 Time: 19:34 Bed IW2 Private MD: Diagnosis: Impacted cerumen, bilateral;Acute pharyngitis, unspecified Presentation: 06/09 20:46 Chief complaint: Patient states: SORE THROAT SINCE WEDNESDAY. LEFT EAR FEELS CLOGGED AND jj7 HE CAN'T HEAR OUT OF IT. Coronavirus screen: At this time, the client does not indicate any symptoms associated with coronavirus-19. Ebola Screen: No symptoms or risks identified at this time. Initial Sepsis Screen: Does the patient meet any 2 criteria? HR > 90 bpm. Does the patient have a suspected source of infection? No. Patient's initial sepsis screen is negative. Risk Assessment: Do you want to hurt yourself or someone else? Patient reports no desire to harm self or others. Onset of symptoms was June 05, 2023. 20:46 Method Of Arrival: Ambulatory [facility] 20:46 Acuity: JHONY 4 jj7 Triage Assessment: 20:50 General: Appears in no apparent distress. uncomfortable, Behavior is calm, cooperative, jj7 appropriate for age. Pain: Complains of pain in THROAT. EENT: Reports SORE THROAT AND DIFFICULTY HEARING OUT OF LEFT EAR. Historical: - Allergies: 20:50 No Known Allergies; jj7 - PMHx: 20:50 Bipolar disorder; insomnia; jj7 - PSHx: 20:50 Tonsillectomy; ADNOIDS; Appendectomy; jj7 - Immunization history:: Adult Immunizations not up to date. - Social history:: Smoking status: Reported history of juuling and/or vaping. Patient uses alcohol, occasionally. Patient/guardian denies using street drugs. Screenin:52 [facility] ED Fall Risk Assessment (Adult) History of falling in the last 3 months, jj7 including since admission No falls in past 3 months (0 pts) Confusion or Disorientation No (0 pts) Intoxicated or Sedated No (0 pts) Impaired Gait No (0 pts) Mobility Assist Device Used No (0 pt) Altered Elimination No (0 pt) Score/Fall Risk Level 0 - 2 = Low Risk Oriented to surroundings, Maintained a safe environment. Abuse screen: Denies threats or abuse. Nutritional screening: No deficits noted. Tuberculosis screening: No symptoms or risk factors identified. Assessment: 23:18 General: Appears in no apparent distress. comfortable, Behavior is calm, cooperative. lg3 Pain: Complains of pain in throat. Neuro: No deficits noted. Pastor Agitation-Sedation Scale (RASS): 0 - Alert and Calm Level of Consciousness is awake, alert, obeys commands, Oriented to person, place, time, situation. Cardiovascular: No deficits noted. Denies chest pain, shortness of breath, Capillary refill < 3 seconds Clubbing of nail beds is absent JVD is absent Patient's skin is warm and dry. Respiratory: No deficits noted. Airway is patent Respiratory effort is even, unlabored, Respiratory pattern is regular, symmetrical. GI: No deficits noted. No signs and/or symptoms were reported involving the gastrointestinal system. Abdomen is round non-distended, obese. : No deficits noted. No signs and/or symptoms were reported regarding the genitourinary system. EENT: No deficits noted. Reports pain when swallowing. Derm: No deficits noted. No signs and/or symptoms reported regarding the dermatologic system. Skin is intact, is healthy with good turgor, Skin is dry, Skin is normal, Skin temperature is warm. Musculoskeletal: No deficits noted. No signs and/or symptoms reported regarding the musculoskeletal system. Circulation, motion, and sensation intact. Range of motion: intact in all extremities. Vital Signs: 20:46 BP 131 / 86; Pulse 102; Resp 16; Temp 98.6; Pulse Ox 97% ; Weight 92.99 kg; Height 5 jj7 ft. 5 in. ; Pain 5/10; 23:18 BP 129 / 84; Pulse 97; Resp 17 S; Pulse Ox 98% on R/A; lg3 20:46 Body Mass Index 34.11 (92.99 kg, 165.1 cm) jj7 20:46 Pain Scale: Adult jj7 ED Course: 19:36 Patient arrived in ED. gm2 20:11 Eric Gonsalez PA is PHCP. cp 20:11 Eric Ellington MD is Attending Physician. cp 20:50 Triage completed. jj7 20:50 Arm band placed on right wrist. jj7 20:52 Patient has correct armband on for positive identification. jj7 20:52 No provider procedures requiring assistance completed. jj7 20:55 Influenza Screen (a \T\ B) Sent. jj7 20:55 Strep Sent. jj7 20:55 COVID-19 SARS RT PCR Sent. jj7 23:18 Patient did not have IV access during this emergency room visit. lg3 Administered Medications: No medications were administered Medication: 23:18 VIS not applicable for this client. lg3 Outcome: 23:03 Discharge ordered by . sheridan 23:18 Discharged to home ambulatory, lg3 23:18 Condition: stable 23:18 Discharge instructions given to patient, Instructed on discharge instructions, follow up and referral plans. medication usage, Demonstrated understanding of instructions, follow-up care, medications, Prescriptions given X 1, 23:20 Patient left the ED. lg3 Signatures: Eric Gonsalez PA PA cp Gibson, Lacie RN RN lg3 Rosaura Hi RN RN jj7 Chacha Herrera 2
--- NOTE | 2023-06-09 23:03 | EDPHYS ---
Physician Documentation [facility] Name: Girish Llamas Age: 32 yrs Sex: Male : 1990 Arrival Date: 06/09/2023 Time: 19:34 Bed IW2 Private MD: ED Physician Eric Ellington HPI: 06/09 21:00 This 32 yrs old Male presents to ER via Ambulatory with complaints of Flu Symptoms, Ear cp Pain. 21:00 The patient or guardian reports cough, that is intermittent, sore throat. cp 21:00 Onset: The symptoms/episode began/occurred 4 day(s) ago. cp 21:00 Associated signs and symptoms: Pertinent positives: decreased hearing out of left ear, cp Pertinent negatives: diarrhea, ear ache, fever, vomiting. Severity of symptoms: in the emergency department the symptoms are unchanged despite home interventions. Historical: - Allergies: 20:50 No Known Allergies; jj7 - PMHx: 20:50 Bipolar disorder; insomnia; jj7 - PSHx: 20:50 Tonsillectomy; ADNOIDS; Appendectomy; jj7 - Immunization history:: Adult Immunizations not up to date. - Social history:: Smoking status: Reported history of juuling and/or vaping. Patient uses alcohol, occasionally. Patient/guardian denies using street drugs. ROS: 21:05 Constitutional: Negative for body aches, chills, fever, poor PO intake, cp 21:05 ENT: Positive for sore throat, decreased hearing out of left ear, Negative for drainage cp from ear(s), ear pain, difficulty swallowing, difficulty handling secretions, 21:05 Respiratory: Positive for cough, Negative for wheezing, cp 21:05 Eyes: Negative for injury, pain, redness, and discharge, cp 21:05 Neck: Negative for pain with movement, pain at rest, stiffness, 21:05 Skin: Negative for rash, 21:05 Neuro: Negative for headache, 21:05 All other systems are negative, Exam: 21:10 Constitutional: The patient appears in no acute distress, alert, awake, non-toxic, well cp developed, well nourished, 21:10 Head/Face: Normocephalic, atraumatic. cp 21:10 Eyes: Periorbital structures: appear normal, Conjunctiva: normal, no exudate, no injection, Sclera: no appreciated abnormality, Lids and lashes: appear normal, bilaterally, 21:10 ENT: External ear(s): are unremarkable, Ear canal(s): cerumen impaction, that is moderate, bilaterally, TM's: not visable, because of cerumen, Nose: is normal, Mouth: Lips: moist, Oral mucosa: pink and intact, moist, Posterior pharynx: Airway: no evidence of obstruction, patent, Tonsils: no enlargement, no erythema, no exudate, erythema, is not appreciated, exudate, is not appreciated, 21:10 Neck: ROM/movement: is normal, is supple, no meningismus, no nuchal rigidity, 21:10 Chest/axilla: Inspection: normal, 21:10 Cardiovascular: Rate: tachycardic, Rhythm: regular, 21:10 Respiratory: the patient does not display signs of respiratory distress, Respirations: normal, no use of accessory muscles, no retractions, labored breathing, is not present, Breath sounds: are clear throughout, no decreased breath sounds, no stridor, no wheezing, 21:10 Abdomen/GI: Exam negative for discomfort, distension, guarding, Inspection: abdomen appears normal, Vital Signs: 20:46 BP 131 / 86; Pulse 102; Resp 16; Temp 98.6; Pulse Ox 97% ; Weight 92.99 kg; Height 5 jj7 ft. 5 in. ; Pain 5/10; 23:18 BP 129 / 84; Pulse 97; Resp 17 S; Pulse Ox 98% on R/A; lg3 20:46 Body Mass Index 34.11 (92.99 kg, 165.1 cm) jj7 20:46 Pain Scale: Adult jj7 MDM: 20:58 Patient medically screened. cp 23:02 Data reviewed: vital signs, nurses notes, lab test result(s). cp 23:02 Differential diagnosis: bronchitis, flu, URI. Counseling: I had a detailed discussion cp with the patient and/or guardian regarding the historical points, exam findings, and any diagnostic results supporting the discharge/admit diagnosis, lab results, to return to the emergency department if symptoms worsen or persist or if there are any questions or concerns that arise at home. 06/09 20:50 Order name: COVID-19 SARS RT PCR; Complete Time: 23:01 06/09 23:01 Interpretation: Reviewed. cp 06/09 20:50 Order name: Strep cp 06/09 20:50 Order name: Influenza Screen (a \T\ B); Complete Time: 23:01 cp 06/09 23:01 Interpretation: Reviewed. cp 06/09 21:20 Order name: Throat Culture EDMS Administered Medications: No medications were administered Disposition Summary: 06/09/23 23:03 Discharge Ordered Notes: Location: Home cp Problem: new cp Symptoms: have improved cp Condition: Stable cp Diagnosis - Impacted cerumen, bilateral cp - Acute pharyngitis, unspecified cp Followup: cp - With: Private Physician - When: 2 - 3 days - Reason: Worsening of condition Discharge Instructions: - Discharge Summary Sheet cp - Earwax Buildup, Adult cp - Sore Throat cp Forms: - Medication Reconciliation Form cp - Thank You Letter cp - Antibiotic Education cp - Prescription Opioid Use cp - Patient Portal Instructions cp - Leadership Thank You Letter cp Prescriptions: - Tessalon Perles 100 mg Oral Capsule - take 1 capsule ORAL route every 8 hours As needed; 15 capsule; Refills: 0, cp Product Selection Permitted Signatures: Dispatcher [employer] EDMS Eric Gonsalez PA PA cp Johnson, Juwairiyah RN RN jj7 Corrections: (The following items were deleted from the chart) 06/10 22:47 06/09 21:05 ENT: Positive for sore throat, cp cp
[2023-06-09 23:53] VITALS: TEMP 98.6
[2023-06-09 23:54] VITALS: BP 129/84; O2SAT 98
== END 2023-06-09 23:20 | disposition home or self-care (01) ==
LOC: ER 19:34
DX: J02.9 Acute pharyngitis, unspecified (principal); H61.23 Impacted cerumen, bilateral; R05.9 Cough, unspecified; Z11.52 Encounter for screening for COVID-19
CPT/HCPCS: 87070; 87081; 87635; 87804; 99283

== ENCOUNTER → 2023-07-07 | Emergency (ER) | payer BC, SELFPAY ==
[~2023-07-07] MED LIST: ACETAMINOPHEN 500 MG TAB ONE; DIPHENHYDRAMINE 50 MG/ML VIAL ONE; METOCLOPRAMIDE 10 MG/2mL INJ ONE; NA CHLORIDE 0.9% 1,000 ML ONE; OSELTAMIVIR 75 MG CAP PO ONE
--- OUTSIDE RECORDS SUMMARY | 2023-07-07 18:35 | XMS REPORT | Continuity of Care Document ---
Author Name Unknown Address [address] [facility] [address] [place] [address] [facility] thconnect Address [address] [facility]. [address] [place] [address] Care Team Providers Care Reexaminer Name Role Phone CRYSTAL MONTE Primary Care Physician Unavaila CRYSTAL Mera Attending Clinician Unavailable Doctor Unassigned, [place] Attending Clinician U Crystal Ace Attending Clinician [phone] MATT AGARWAL Attending Clinician Unavailable Matt Agarwal MD Attending Clinician [phone], [facility] Attending Clinician Unavailable Lab Ang - Geoff Attending Clinician Unavailable DANILO Attending Clinician Unavailable MARK LEONE Attending Clinician Unavailable [email or web address]_A Attending Clinician Unavailable Velma Rasheed Attending Clinician [phone] MATT AGARWAL Admitting Clinician Unavailable DANILO Admitting Clinician Unavailable CHILOSEFRED_Rivera_A Admitting Clinician Unavailable Payers Payer Name Policy Type Policy Number Effective Date Expirati on Date Source [place] [id number] 2020 00:00:00 Problems Condition Name Condition Details Condition Category Status Onset Date Resolution Date Last Treatment Date Treating Clinician Comments Source Elevated LFTs Elevated LFTs Disease Active 2021-07 00:00: 00 [facility] Obesity (BMI 30-39.9) Obesity (BMI 30-39.9) Disease Active 2021-07 00:00: 00 [facility] No known active problems No known active problems Disease [facility] Allergies, Adverse Reactions, Alerts Allergy Name Allergy Type Status Severity Reaction(s) Onset Date Inactive Date Treating Clinician Comments Source NO KNOWN ALLERGIE S Drug Class Active [facility] Social History Social Habit Start Date Stop Date Quantity Comments Source History SDOH Alcohol Frequency [facility] History SDOH Alcohol Std Drinks [facility] SD[facility] Alcohol Binge [facility] Exposure to SARS-CoV-2 (event) 2022-11-16 00:00:00 2022-11-26 07:07:00 Not sure [facility] History of Social function 2022-11-26 00:00:00 2022-11-26 00:00:00 [facility] Alcohol intake 2022-06-11 00:00:00 2022-06-11 00:00:00 Current drinker of alcohol (finding) [facility] Tobacco use and exposure 2021-10-30 00:00:00 2021-10-30 00:00:00 Smokeless tobacco non-user [facility] Alcohol Comment 2021-10-30 00:00:00 2021-10-30 00:00:00 once every couple of weeks. [facility] Sex Assigned At 1990 00:00:00 1990 00:00:00 [facility] Smoking Status Start Date Stop Date Source Never smoked tobacco [facility] Medications Ordered Medication Name Filled Medication Name Start Date Stop Date Current Medication? Ordering Clinician Indication Dosage Frequency Signature (SIG) Comments Components Source montelukast 10 mg tablet 11-26 00:00: 00 Yes [id number] 10mg Take 1 tablet by mouth in the morning. [facility] azelastine 137 mcg (0.1 %) nasal spray 11-26 00:00: 00 Yes [id number] 1{spray } Use 1 [place] in each nostril in the morning and 1 [place] in the evening. Use in each nostril as directed [facility] montelukast 10 mg tablet 2023-0 5-18 00:00: 00 Yes [id number] 10mg Take 1 tablet by mouth in the morning. [facility] azelastine 137 mcg (0.1 %) nasal spray 2022-0 18 00:00: 00 Yes [id number] 1{spray } Use 1 [place] in each nostril in the morning and 1 [place] in the evening. Use in each nostril as directed [facility] montelukast 10 mg tablet 2022-0 18 00:00: 00 Yes [id number] 10mg Take 1 tablet by mouth in the morning. [facility] azelastine 137 mcg (0.1 %) nasal spray 2022-0 18 00:00: 00 Yes [id number] 1{spray } Use 1 [place] in each nostril in the morning and 1 [place] in the evening. Use in each nostril as directed [facility] montelukast 10 mg tablet 2022-0 18 00:00: 00 Yes [id number] 10mg Take 1 tablet by mouth in the morning. [facility] azelastine 137 mcg (0.1 %) nasal spray 2022-0 18 00:00: 00 Yes [id number] 1{spray } Use 1 [place] in each nostril in the morning and 1 [place] in the evening. Use in each nostril as directed [facility] montelukast 10 mg tablet 2022-0 18 00:00: 00 Yes [id number] 10mg Take 1 tablet by mouth in the morning. [facility] azelastine 137 mcg (0.1 %) nasal spray 2022-0 18 00:00: 00 Yes [id number] 1{spray } Use 1 [place] in each nostril in the morning and 1 [place] in the evening. Use in each nostril as directed [facility] FLUoxetine 20 mg capsule 2022-0 4-12 00:00: 00 Yes TAKE ONE (1) CAPSULE BY MOUTH ONCE A DAY. [facility] FLUoxetine 20 mg capsule 2022-0 4-12 00:00: 00 Yes TAKE ONE (1) CAPSULE BY MOUTH ONCE A DAY. [facility] FLUoxetine 20 mg capsule 2022-0 4-12 00:00: 00 Yes TAKE ONE (1) CAPSULE BY MOUTH ONCE A DAY. [facility] FLUoxetine 20 mg capsule 3-0 4-12 00:00: 00 Yes TAKE ONE (1) CAPSULE BY MOUTH ONCE A DAY. [facility] FLUoxetine 20 mg capsule 2022-0 4-12 00:00: 00 Yes TAKE ONE (1) CAPSULE BY MOUTH ONCE A DAY. [facility] propranoloL 20 mg tablet 2022-0 1-13 00:00: 00 Yes [id number] 20mg Take 1 tablet by mouth in the morning and 1 tablet in the evening. [facility] propranoloL 20 mg tablet 2022-0 -13 00:00: 00 Yes [id number] 20mg Take 1 tablet by mouth in the morning and 1 tablet in the evening. [facility] propranoloL 20 mg tablet 3-0 -13 00:00: 00 Yes [id number] 20mg Take 1 tablet by mouth in the morning and 1 tablet in the evening. [facility] propranoloL 20 mg tablet 3-0 -13 00:00: 00 Yes [id number] 20mg Take 1 tablet by mouth in the morning and 1 tablet in the evening. [facility] propranoloL 20 mg tablet 3-0 -13 00:00: 00 Yes [id number] 20mg Take 1 tablet by mouth in the morning and 1 tablet in the evening. [facility] propranoloL 20 mg tablet 3-0 -13 00:00: 00 Yes [id number] 20mg Take 1 tablet by mouth in the morning and 1 tablet in the evening. [facility] Quetiapine 150 mg tablet 2021- 0-21 14:16: 18 05-01 00:00 :00 No Take by mouth. [facility] Quetiapine 150 mg tablet 2021-1 0-21 14:16: 18 05-01 00:00 :00 No Take by mouth. [facility] QUEtiapine 200 mg tablet 2021-0 - 00:00: 00 Yes TAKE 1 TABLET BY MOUTH EVERY NIGHT WITH A 50MG TABLET [facility] QUEtiapine 50 mg tablet 2021-0 04-01 00:00: 00 Yes TAKE 1 TABLET BY MOUTH EVERY NIGHT WITH A 200MG TABLET, FOR 250MG TOTAL EACH NIGHT [facility] QUEtiapine 200 mg tablet 0 04-01 00:00: 00 Yes TAKE 1 TABLET BY MOUTH EVERY NIGHT WITH A 50MG TABLET [facility] QUEtiapine 50 mg tablet 0 04-01 00:00: 00 Yes TAKE 1 TABLET BY MOUTH EVERY NIGHT WITH A 200MG TABLET, FOR 250MG TOTAL EACH NIGHT [facility] QUEtiapine 200 mg tablet 0 04-01 00:00: 00 Yes TAKE 1 TABLET BY MOUTH EVERY NIGHT WITH A 50MG TABLET [facility] QUEtiapine 50 mg tablet 0 04-01 00:00: 00 Yes TAKE 1 TABLET BY MOUTH EVERY NIGHT WITH A 200MG TABLET, FOR 250MG TOTAL EACH NIGHT [facility] QUEtiapine 200 mg tablet 0 04-01 00:00: 00 Yes TAKE 1 TABLET BY MOUTH EVERY NIGHT WITH A 50MG TABLET [facility] QUEtiapine 50 mg tablet 0 04-01 00:00: 00 Yes TAKE 1 TABLET BY MOUTH EVERY NIGHT WITH A 200MG TABLET, FOR 250MG TOTAL EACH NIGHT [facility] QUEtiapine 200 mg tablet 0 04-01 00:00: 00 Yes TAKE 1 TABLET BY MOUTH EVERY NIGHT WITH A 50MG TABLET [facility] QUEtiapine 50 mg tablet 0 04-01 00:00: 00 Yes TAKE 1 TABLET BY MOUTH EVERY NIGHT WITH A 200MG TABLET, FOR 250MG TOTAL EACH NIGHT [facility] QUEtiapine 200 mg tablet 0 04-01 00:00: 00 Yes TAKE 1 TABLET BY MOUTH EVERY NIGHT WITH A 50MG TABLET [facility] QUEtiapine 50 mg tablet 0 04-01 00:00: 00 Yes TAKE 1 TABLET BY MOUTH EVERY NIGHT WITH A 200MG TABLET, FOR 250MG TOTAL EACH NIGHT [facility] QUEtiapine 200 mg tablet 0 04-01 00:00: 00 Yes TAKE 1 TABLET BY MOUTH EVERY NIGHT WITH A 50MG TABLET [facility] QUEtiapine 50 mg tablet 0 04-01 00:00: 00 Yes TAKE 1 TABLET BY MOUTH EVERY NIGHT WITH A 200MG TABLET, FOR 250MG TOTAL EACH NIGHT [facility] QUEtiapine 200 mg tablet 0 04-01 00:00: 00 Yes TAKE 1 TABLET BY MOUTH EVERY NIGHT WITH A 50MG TABLET [facility] QUEtiapine 50 mg tablet 0 04-01 00:00: 00 Yes TAKE 1 TABLET BY MOUTH EVERY NIGHT WITH A 200MG TABLET, FOR 250MG TOTAL EACH NIGHT [facility] QUEtiapine 200 mg tablet 0 04-01 00:00: 00 Yes TAKE 1 TABLET BY MOUTH EVERY NIGHT WITH A 50MG TABLET [facility] QUEtiapine 50 mg tablet 0 04-01 00:00: 00 Yes TAKE 1 TABLET BY MOUTH EVERY NIGHT WITH A 200MG TABLET, FOR 250MG TOTAL EACH NIGHT [facility] QUEtiapine 200 mg tablet 0 04-01 00:00: 00 Yes TAKE 1 TABLET BY MOUTH EVERY NIGHT WITH A 50MG TABLET [facility] QUEtiapine 50 mg tablet 0 04-01 00:00: 00 Yes TAKE 1 TABLET BY MOUTH EVERY NIGHT WITH A 200MG TABLET, FOR 250MG TOTAL EACH NIGHT [facility] QUEtiapine 200 mg tablet 0 04-01 00:00: 00 Yes TAKE 1 TABLET BY MOUTH EVERY NIGHT WITH A 50MG TABLET [facility] QUEtiapine 50 mg tablet 0 04-01 00:00: 00 Yes TAKE 1 TABLET BY MOUTH EVERY NIGHT WITH A 200MG TABLET, FOR 250MG TOTAL EACH NIGHT [facility] QUEtiapine 200 mg tablet 0 04-01 00:00: 00 Yes TAKE 1 TABLET BY MOUTH EVERY NIGHT WITH A 50MG TABLET [facility] QUEtiapine 50 mg tablet 2021-0 04-01 00:00: 00 Yes TAKE 1 TABLET BY MOUTH EVERY NIGHT WITH A 200MG TABLET, FOR 250MG TOTAL EACH NIGHT [facility] QUEtiapine 200 mg tablet 2021-0 04-01 00:00: 00 Yes TAKE 1 TABLET BY MOUTH EVERY NIGHT WITH A 50MG TABLET [facility] QUEtiapine 50 mg tablet 2021-0 04-01 00:00: 00 Yes TAKE 1 TABLET BY MOUTH EVERY NIGHT WITH A 200MG TABLET, FOR 250MG TOTAL EACH NIGHT [facility] QUEtiapine 200 mg tablet 0 04-01 00:00: 00 Yes TAKE 1 TABLET BY MOUTH EVERY NIGHT WITH A 50MG TABLET [facility] QUEtiapine 50 mg tablet 0 04-01 00:00: 00 Yes TAKE 1 TABLET BY MOUTH EVERY NIGHT WITH A 200MG TABLET, FOR 250MG TOTAL EACH NIGHT [facility] QUEtiapine 200 mg tablet 0 04-01 00:00: 00 Yes TAKE 1 TABLET BY MOUTH EVERY NIGHT WITH A 50MG TABLET [facility] QUEtiapine 50 mg tablet 0 04-01 00:00: 00 Yes TAKE 1 TABLET BY MOUTH EVERY NIGHT WITH A 200MG TABLET, FOR 250MG TOTAL EACH NIGHT [facility] QUEtiapine 200 mg tablet 0 04-01 00:00: 00 Yes TAKE 1 TABLET BY MOUTH EVERY NIGHT WITH A 50MG TABLET [facility] QUEtiapine 50 mg tablet 0 04-01 00:00: 00 Yes TAKE 1 TABLET BY MOUTH EVERY NIGHT WITH A 200MG TABLET, FOR 250MG TOTAL EACH NIGHT [facility] Quetiapine 150 mg tablet 0 10-30 14:19: 14 Yes Take by mouth. [facility] Quetiapine 150 mg tablet 0 10-30 14:19: 14 Yes Take by mouth. [facility] mupirocin 2 % ointment 0 10-30 00:00: 00 Yes [id number] Apply to area(s) 3 (three) times daily. [facility] mupirocin 2 % ointment 0 10-30 00:00: 00 Yes [id number] Apply to area(s) 3 (three) times daily. [facility] mupirocin 2 % ointment 0 10-30 00:00: 00 05-01 00:00 :00 No [id number] Apply to area(s) 3 (three) times daily. [facility] mupirocin 2 % ointment 202210-30 00:00: 00 05-01 00:00 :00 No [id number] Apply to area(s) 3 (three) times daily. [facility] sulfamethox azole-trime thoprim (BACTRIM DS) 800-160 mg per tablet 10-30 00:00: 00 11-07 04:59 :00 No [id number] 1{tbl} Take 1 tablet by mouth 2 (two) times daily for 7 days. [facility] gabapentin 300 mg capsule 10-27 00:00: 00 Yes [facility] gabapentin 300 mg capsule 10-27 00:00: 00 Yes [facility] gabapentin 300 mg capsule 10-27 00:00: 00 05-01 00:00 :00 No [facility] gabapentin 300 mg capsule 10-27 00:00: 00 05-01 00:00 :00 No [facility] FLUoxetine 20 mg capsule 10-27 00:00: 00 10-30 00:00 :00 No [facility] QUEtiapine 200 mg tablet 3 00:00: 00 10-30 00:00 :00 No TAKE 1 TABLET BY MOUTH EVERY NIGHT WITH A 50MG TABLET [facility] QUEtiapine 50 mg tablet 3- 00:00: 00 10-30 00:00 :00 No TAKE 1 TABLET BY MOUTH EVERY NIGHT WITH A 200MG TABLET, FOR 250MG TOTAL EACH NIGHT [facility] ondansetron (ZOFRAN) 8 mg tablet 1-30 00:00: 00 10-30 00:00 :00 No [id number] 8mg Take 1 tablet by mouth every 8 (eight) hours as needed for Nausea and Vomiting (N/V). [facility] Vital Signs Vital Name Observation Time Observation Value Comments S ource Systolic blood pressure 2022-11-26 12:30:00 103 mm[Hg] [facility] Diastolic blood pressure 2022-11-26 12:30:00 67 mm[Hg] [facility] Heart rate 2022-11-26 12:30:00 93 /min [facility] Body temperature 2022-11-26 12:30:00 36.89 Mackenzie [facility] Body height 2022-11-26 12:30:00 165.1 cm [facility] Body weight 2022-11-26 12:30:00 92.398 kg [facility] BMI 2022-11-26 12:30:00 33.90 kg/m2 [facility] Oxygen saturation in Arterial blood by Pulse oximetry 2022-11-26 12:30:00 98 /min [facility] Systolic blood pressure 2022-06-11 20:11:00 106 mm[Hg] [facility] Diastolic blood pressure 2022-06-11 20:11:00 72 mm[Hg] [facility] Heart rate 2022-06-11 20:11:00 87 /min [facility] Body temperature 2022-06-11 20:11:00 36.72 Mackenzie [facility] Respiratory rate 2022-06-11 20:11:00 16 /min [facility] Body height 2022-06-11 20:11:00 165.1 cm [facility] Body weight 2022-06-11 20:11:00 90.901 kg [facility] BMI 2022-06-11 20:11:00 33.35 kg/m2 [facility] Oxygen saturation in Arterial blood by Pulse oximetry 2022-06-11 20:11:00 97 /min [facility] Systolic blood pressure 2022-05-01 19:15:00 113 mm[Hg] [facility] Diastolic blood pressure 2022-05-01 19:15:00 79 mm[Hg] [facility] Heart rate 2022-05-01 19:15:00 89 /min [facility] Body temperature 2022-05-01 19:15:00 36.78 Mackenzie [facility] Body height 2022-05-01 19:15:00 165.1 cm [facility] Body weight 2022-05-01 19:15:00 92.035 kg [facility] BMI 2022-05-01 19:15:00 33.76 kg/m2 [facility] Oxygen saturation in Arterial blood by Pulse oximetry 2022-05-01 19:15:00 100 /min [facility] Systolic blood pressure 2021-10-30 18:56:00 125 mm[Hg] [facility] Diastolic blood pressure 2021-10-30 18:56:00 85 mm[Hg] [facility] Heart rate 2021-10-30 18:56:00 96 /min [facility] Body temperature 2021-10-30 18:56:00 36.89 Mackenzie [facility] Body height 2021-10-30 18:56:00 165.1 cm [facility] Body weight 2021-10-30 18:56:00 92.534 kg [facility] BMI 2021-10-30 18:56:00 33.95 kg/m2 [facility] Oxygen saturation in Arterial blood by Pulse oximetry 2021-10-30 18:56:00 97 /min [facility] Procedures Procedure Date / Time Performed Performing Clinicia n Source EXTERNAL PROVIDER RECORDS 2021-11-10 05:01:00 Doctor Unassigned, [place] [facility] Encounters Start Date/Time End Date/Time Encounter Type Admission Type Attending Clinicians Care Facility Care Department Encounter ID Source 2022-12-31 00:00:00 2022-12-31 00:00:00 Patient Secure Msg Doctor Unassigned, [place] [facility] .840.114 350.1.13.10 4.2.7.2.686 [id number] [facility] 2022-12-03 00:00:00 2022-12-03 00:00:00 Patient Secure Msg Doctor Unassigned, [place] [facility] 1..840.114 350.1.13.10 4.2.7.2.686 [id number] [facility] 2022-11-27 00:00:00 2022-11-27 00:00:00 Telephone Crystal Monte [facility] 1.2.840.114 350.1.13.10 4.2.7.2.686 [id number] [facility] 2022-11-26 07:54:01 2022-11-26 23:59:00 Outpatient R CRYSTAL MONTE [facility] [id number] [facility] 2022-11-26 07:30:00 2022-11-26 07:52:20 Office Visit Crystal [facility] 1.2.840.114 350.1.13.10 4.2.7.2.686 [id number] [facility] 2022-08-24 10:40:00 2022-08-24 10:40:00 Outpatient R MATT AGARWAL [facility] [id number] [facility] 2022-07-23 00:00:00 2022-07-23 00:00:00 Patient Secure Msg Santosh [facility] NAL BUILDING 1..840.114 350.1.13.10 4.2.7.2.686 [id number] [facility] 2022-07-14 00:00:00 2022-07-14 00:00:00 [facility] 1.2.840.114 350.1.13.10 4.2.7.2.686 [id number] [facility] 2022-07-10 00:00:00 2022-07-10 00:00:00 [facility] 1.2.840.114 350.1.13.10 4.2.7.2.686 [id number] [facility] 2022-07-09 13:00:00 2022-07-09 23:59:00 [facility] [id number] [facility] 2022-07-08 08:30:00 2022-07-08 23:59:00 [facility] [id number] [facility] 2022-06-30 00:00:00 2022-06-30 00:00:00 Outpatient R CRYSTAL MONTE [facility] [id number] [facility] 2022-06-13 00:00:00 2022-06-13 00:00:00 Telephone Crystal Monte [facility] 1.2.840.114 350.1.13.10 4.2.7.2.686 [id number] [facility] 2022-06-12 00:00:00 2022-06-12 00:00:00 Patient Secure Msg Santosh [facility] BUILDING 1.2.840.114 350.1.13.10 4.2.7.2.686 [id number] [facility] 2022-06-11 14:45:00 2022-06-11 15:00:00 Director Business Development Visit 2, [facility] Santosh [facility] NAL BUILDING 1.2.840.114 350.1.13.10 4.2.7.2.686 [id number] [facility] 2022-06-11 14:00:00 2022-06-11 14:29:27 [facility] [id number] [facility] 2022-06-11 14:00:00 2022-06-11 14:29:27 Office Visit Santosh [facility] BUILDING 1.2.840.114 350.1.13.10 4.2.7.2.686 [id number] [facility] 2022-05-01 15:00:00 2022-05-01 16:23:07 Director Business Development Visit Lab, Cory Tellez [facility] [place] MED[facility] OFF[facility] BUILDING 1..840.114 350.1.13.10 4.2.7.2.686 [id number] [facility] 2022-05-01 14:30:00 2022-05-01 14:53:05 Outpatient R CRYSTAL MONTE [facility] [id number] [facility] 2022-05-01 14:30:00 2022-05-01 14:53:05 Office Visit [facility] [place] MED[facility] OFF[facility] BUILDING 1..840.114 350.1.13.10 4.2.7.2.686 [id number] [facility] 2022-02-06 00:00:00 2022-02-06 00:00:00 Outpatient ZULEMA EDWARDS [facility] [id number] 2022-01-02 14:30:00 2022-01-02 14:30:00 Outpatient R CRYSTAL MONTE [facility] [id number] [facility] 2021-11-10 14:30:00 2021-11-10 14:30:00 Outpatient MARK FUENTES [facility] [id number] [facility] 2021-11-10 00:00:00 2021-11-10 00:00:00 Orders Only Doctor Unassigned, [place] [facility] 1.840.114 350.1.13.10 4.2.7.2.686 [id number] [facility] 2021-11-06 07:30:00 2021-11-06 07:30:00 Outpatient R ESTUARDO MONTELIE [facility] [id number] [facility] 2021-10-30 14:00:00 2021-10-30 14:26:51 Outpatient R ESTUARDO MONTELIE [facility] [id number] [facility] 2021-10-30 14:00:00 2021-10-30 14:26:51 Office Visit Crystal Monte [facility] 1..840.114 350.1.13.10 4.2.7.2.686 [id number] [facility] 2021-10-30 00:00:00 2021-10-30 00:00:00 Orders Only Doctor Unassigned, [place] [facility] 1..840.114 350.1.13.10 4.2.7.2.686 [id number] [facility] 2021-10-21 04:05:00 2021-10-21 04:05:00 Outpatient GC_SEFP_Riv era_A PRIV PRIV [id number] [facility] 2019-08-10 16:29:04 2019-08-10 22:22:00 Emergency Velma Marquez [facility] 1..840.114 350.1.13.10 4.2.7.2.686 [id number]
[2023-07-07 19:29] LABS: Absolute Lymphocytes (CBC) 0.4 K/uL (0.7-4.9); Hematocrit 42.9 % (39.6-49.0); Lymphocytes % 4.3 % (15.3-44.8); MPV 8.1 fL (7.6-11.3); Platelets 254 thou/uL (152-406); RBC Red Blood Cell Count 4.93 M/uL (4.33-5.43)
[2023-07-07 19:47] LABS: Albumin 4.4 g/dL (3.4-5.0); Bilirubin Total 1.1 mg/dL (0.2-1.0); Potassium 3.6 mEq/L (3.5-5.1); Protein, Total 8.7 g/dL (6.4-8.2)
--- NOTE | 2023-07-07 20:16 | RAD REPORT ---
EXAM DESCRIPTION: RAD - Chest Single View - 07/07/2023 7:49 pm CLINICAL HISTORY: COUGH Chest pain. COMPARISON: No comparisons FINDINGS: Portable technique limits examination quality. The lungs are grossly clear. The heart is normal in size. No displaced fractures. IMPRESSION: No acute intrathoracic process suspected.
[2023-07-07 20:26] LABS: SARS-COV-2 RT PCR NEGATIVE (NEGATIVE)
[2023-07-07 20:37] LABS: Blood Morphology Comment NOT SEEN (NOT SEEN); Platelet Estimate ADEQ
--- NOTE | 2023-07-07 22:32 | EDPHYS ---
Physician Documentation [facility] Name: Girish Llamas Age: 32 yrs Sex: Male : 1990 Arrival Date: 07/07/2023 Time: 18:31 Bed 3 Private MD: ED Physician Kishor Portillo HPI: 07/07 18:54 This 32 yrs old Male presents to ER via Ambulatory with complaints of ec2 Shortness Of Breath, Fever. 18:54 Patient arrives today due to concern for URI signs and symptoms. Patient reports has ec2 been having fevers at home along with persistent cough and congestion, decreased p.o. intake, associated nausea. Patient reports no abdominal pain, no chest pain, no significant difficulty breathing aside from the frequent cough. Patient reports no urinary complaints.. Historical: - Allergies: 18:51 No Known Drug Allergies; hb - Home Meds: 18:51 Seroquel Oral [Active]; hb - PMHx: 18:51 Bipolar disorder; insomnia; hb - PSHx: 18:51 Adnoids; Appendectomy; Tonsillectomy; hb - Immunization history:: Adult Immunizations up to date. - Social history:: Smoking status: Patient denies any tobacco usage or history of. ROS: 18:54 Constitutional: as per hpi ec2 Exam: 18:54 Constitutional: GEN: NAD Head: atraumatic Eyes: EOMI Ears: External ears are ec2 normal. CV: Tachycardia LUNGS: no respiratory distress, no wheezes, no rales, rhonchi ABD: non-distended, soft, nontender, no guarding, not rigid SKIN: no evidence of rashes MSK: no evidence of trauma NEURO: moves all extremities equally Vital Signs: 18:49 BP 125 / 81; Pulse 144; Resp 20; Temp 99.9(TE); Pulse Ox 100% on R/A; Weight 90.72 kg; hb Height 5 ft. 6 in. ; Pain 6/10; 20:57 Temp 99.4(O); rv 20:57 BP 105 / 58; Pulse 122; Resp 19 S; Pulse Ox 97% on R/A; ha1 20:58 BP 105 / 58; Pulse 121; Resp 20; Pulse Ox 98% on R/A; rv 22:03 BP 102 / 65; Pulse 116; Resp 18; Pulse Ox 98% on R/A; rv 18:49 Body Mass Index 32.28 (90.72 kg, 167.64 cm) hb 18:49 Pain Scale: Adult hb [place] Coma Score: 19:29 Eye Response: spontaneous(4). Motor Response: obeys commands(6). Verbal Response: rv oriented(5). Total: 15. MDM: 18:54 Data reviewed: vital signs. ED course: Patient arrives today for URI signs and ec2 symptoms. Examination remarkable for nontoxic individual was tachycardic who has a frequent cough noted on examination. Will obtain lab work, EKG, chest x-ray, viral swab. Suspect viral process, lower suspicion for pneumonia, lower suspicion for bacteremia, possible strep pharyngitis.. 18:56 Patient medically screened. ec2 19:15 ED course: EKG independently reviewed and interpreted by me, shows sinus tachycardia, ec2 rate 130, no acute ST segment elevations, nonconcerning intervals.. 19:58 ED course: Metabolic profile with appropriate electrolytes. Negative strep screening. ec2 Patient signed out to [facility] with pending lab work and reassessment. I suspect if clinically patient is improving and overall has a reassuring laboratory evaluation, patient to follow-up outpatient, suspect viral process.. 07/07 18:53 Order name: CBC with Diff; Complete Time: 20:41 ec2 07/07 18:53 Order name: CMP; Complete Time: 19:58 ec2 07/07 18:53 Order name: COVID-19/FLU A+B/RSV; Complete Time: 20:41 ec2 07/07 18:53 Order name: Strep; Complete Time: 19:58 ec2 07/07 19:39 Order name: Manual Differential; Complete Time: 20:41 EDMS 07/07 19:43 Order name: Throat Culture EDMS 07/07 18:53 Order name: CXR XRAY; Complete Time: 20:22 ec2 07/07 18:53 Order name: EKG; Complete Time: 18:54 ec2 07/07 18:53 Order name: EKG - Nurse/Tech; Complete Time: 19:28 ec2 Administered Medications: 19:28 Drug: Acetaminophen PO 1000 mg PO once Route: PO; rv 22:04 Follow up: Response: No adverse reaction rv 19:28 Drug: NS 0.9% IV 1000 ml IV at 1 bolus Per protocol; 1000 mL bolus Route: IV; Rate: 1 rv bolus; Site: right forearm; 22:04 Follow up: IV Status: Completed infusion; IV Intake: 1000ml rv 19:28 Drug: metoCLOPramide IVP 10 mg IVP once; over 1 to 2 minutes Route: IVP; Site: right rv forearm; 22:04 Follow up: Response: No adverse reaction rv 19:28 Drug: diphenhydrAMINE IVP 25 mg IVP once Route: IVP; Site: right forearm; rv 22:04 Follow up: Response: No adverse reaction rv 20:56 Drug: Oseltamivir PO 75 mg PO once Route: PO; rv 22:04 Follow up: Response: No adverse reaction rv 20:57 Drug: NS 0.9% IV 1000 ml IV at 1 bolus Per protocol; 1000 mL bolus Route: IV; Rate: 1 rv bolus; Site: right antecubital; 22:03 Follow up: IV Status: Completed infusion; IV Intake: 1000ml rv Disposition Summary: 07/07/23 22:31 Discharge Ordered Notes: Location: Home sb4 Problem: new sb4 Symptoms: have improved sb4 Condition: Stable sb4 Diagnosis - Influenza A sb4 Followup: sb4 - With: Emergency Department - When: As needed - Reason: Trouble breathing, Worsening of condition Discharge Instructions: - Discharge Summary Sheet sb4 - Influenza, Adult, Acwh-pi-Dpwh sb4 Forms: - Medication Reconciliation Form sb4 - Thank You Letter sb4 - Antibiotic Education sb4 - Prescription Opioid Use sb4 - Patient Portal Instructions sb4 - Leadership Thank You Letter sb4 Prescriptions: - Medrol (Guero) 4 mg Oral Tablets, Dose Pack - take 1 tablet ORAL route as directed - follow package instructions; 1 packet; sb4 Refills: 0, Product Selection Permitted - Tamiflu 75 mg Oral capsule - take 1 tablet ORAL route every 12 hours for 5 days; 10 tablet; Refills: 0, sb4 Product Selection Permitted Signatures: Dispatcher [employer] Chica Ornelas RN RN Sergio Nina RN RN rv Candelaria Tejeda PA-C PA-C sb4 Kishor Portillo MD MD ec2 Corrections: (The following items were deleted from the chart) 07/08 09:05 07/07 19:58 ED course: Metabolic profile with appropriate electrolytes. Negative strep ec2 screening. . ec2
--- NOTE | 2023-07-07 22:32 | ER ---
Nurse's Notes [facility] Name: Girish Llamas Age: 32 yrs Sex: Male : 1990 Arrival Date: 07/07/2023 Time: 18:31 Bed 3 Private MD: Diagnosis: Influenza A Presentation: 07/07 18:49 Chief complaint: Painful cough, congestion, SOB, nausea, sore throat, and dizziness x hb 2-3 days, fever today. Coronavirus screen: At this time, the client does not indicate any symptoms associated with coronavirus-19. Ebola Screen: No symptoms or risks identified at this time. Risk Assessment: Do you want to hurt yourself or someone else? Patient reports no desire to harm self or others. Onset of symptoms was July 06, 2023. 18:49 Method Of Arrival: Ambulatory hb 18:49 Initial Sepsis Screen: Does the patient meet any 2 criteria? HR > 90 bpm. No. Patient's hb initial sepsis screen is negative. Does the patient have a suspected source of infection? No. Patient's initial sepsis screen is negative. 18:49 Acuity: JHONY 2 hb Triage Assessment: 19:31 General: Appears comfortable. General: Behavior is calm, cooperative. Respiratory: rv Onset: The symptoms/episode began/occurred gradually, the patient has mild shortness of breath. Respiratory: Breath sounds are clear bilaterally. Respiratory: Airway is patent Respiratory effort is even, unlabored. Respiratory: Reports cough that is. Historical: - Allergies: 18:51 No Known Drug Allergies; hb - Home Meds: 18:51 Seroquel Oral [Active]; hb - PMHx: 18:51 Bipolar disorder; insomnia; hb - PSHx: 18:51 Adnoids; Appendectomy; Tonsillectomy; hb - Immunization history:: Adult Immunizations up to date. - Social history:: Smoking status: Patient denies any tobacco usage or history of. Screenin:30 [facility] ED Fall Risk Assessment (Adult) History of falling in the last 3 months, rv including since admission No falls in past 3 months (0 pts) Score/Fall Risk Level 0 - 2 = Low Risk Oriented to surroundings, Maintained a safe environment, Educated pt \T\ family on fall prevention, incl call for assistance when getting out of bed, Assessed \T\ reinforced patient's understanding of fall precautions. Abuse screen: Denies threats or abuse. Denies injuries from another. Nutritional screening: No deficits noted. Tuberculosis screening: No symptoms or risk factors identified. Assessment: 19:29 General: Appears comfortable, ill, Behavior is calm, cooperative. Pain: Complains of rv pain in head. Neuro: Level of Consciousness is awake, alert, obeys commands, Oriented to person, place, time, situation, Reports headache. Cardiovascular: Rhythm is sinus tachycardia. Respiratory: Reports cough that is hacking, persistent Airway is patent Respiratory effort is even, unlabored, Breath sounds are clear bilaterally. GI: No signs and/or symptoms were reported involving the gastrointestinal system. GI: Reports nausea. : No signs and/or symptoms were reported regarding the genitourinary system. Derm: Skin is intact. 20:58 Reassessment: Patient and/or family updated on plan of care and expected duration. Pain ha1 level reassessed. Patient is alert, oriented x 3, equal unlabored respirations, skin warm/dry/pink. Vital Signs: 18:49 BP 125 / 81; Pulse 144; Resp 20; Temp 99.9(TE); Pulse Ox 100% on R/A; Weight 90.72 kg; hb Height 5 ft. 6 in. ; Pain 6/10; 20:57 Temp 99.4(O); rv 20:57 BP 105 / 58; Pulse 122; Resp 19 S; Pulse Ox 97% on R/A; ha1 20:58 BP 105 / 58; Pulse 121; Resp 20; Pulse Ox 98% on R/A; rv 22:03 BP 102 / 65; Pulse 116; Resp 18; Pulse Ox 98% on R/A; rv 18:49 Body Mass Index 32.28 (90.72 kg, 167.64 cm) hb 18:49 Pain Scale: Adult hb [place] Coma Score: 19:29 Eye Response: spontaneous(4). Motor Response: obeys commands(6). Verbal Response: rv oriented(5). Total: 15. ED Course: 18:35 Patient arrived in ED. ae5 18:35 Kishor Portillo MD is Attending Physician. ec2 18:52 Triage completed. hb 18:52 Arm band placed on. hb 19:28 Sergio Nina RN is Primary Nurse. rv 19:28 Inserted saline lock: 20 gauge in right forearm, using aseptic technique. Blood rv collected. 19:30 Patient has correct armband on for positive identification. Client placed on continuous rv cardiac and pulse oximetry monitoring. NIBP monitoring applied. groundwater monitoring technician on. 19:30 No provider procedures requiring assistance completed. rv 19:51 CXR XRAY In Process Unspecified. EDMS 20:30 Candelaria Tejeda PA-C is PHCP. ec2 22:37 IV discontinued, intact, bleeding controlled, No redness/swelling at site. Pressure rv dressing applied. Administered Medications: 19:28 Drug: Acetaminophen PO 1000 mg PO once Route: PO; rv 22:04 Follow up: Response: No adverse reaction rv 19:28 Drug: NS 0.9% IV 1000 ml IV at 1 bolus Per protocol; 1000 mL bolus Route: IV; Rate: 1 rv bolus; Site: right forearm; 22:04 Follow up: IV Status: Completed infusion; IV Intake: 1000ml rv 19:28 Drug: metoCLOPramide IVP 10 mg IVP once; over 1 to 2 minutes Route: IVP; Site: right rv forearm; 22:04 Follow up: Response: No adverse reaction rv 19:28 Drug: diphenhydrAMINE IVP 25 mg IVP once Route: IVP; Site: right forearm; rv 22:04 Follow up: Response: No adverse reaction rv 20:56 Drug: Oseltamivir PO 75 mg PO once Route: PO; rv 22:04 Follow up: Response: No adverse reaction rv 20:57 Drug: NS 0.9% IV 1000 ml IV at 1 bolus Per protocol; 1000 mL bolus Route: IV; Rate: 1 rv bolus; Site: right antecubital; 22:03 Follow up: IV Status: Completed infusion; IV Intake: 1000ml rv Medication: 19:29 VIS not applicable for this client. rv Intake: 22:03 IV: 1000ml; Total: 1000ml. rv 22:04 IV: 1000ml; Total: 2000ml. rv Outcome: 22:31 Discharge ordered by . sb4 22:36 Discharged to home ambulatory, rv 22:36 Condition: good 22:36 Discharge instructions given to patient, Instructed on discharge instructions, follow up and referral plans. medication usage, Demonstrated understanding of instructions, follow-up care, medications, Prescriptions given X 2, 22:37 Patient left the ED. rv Signatures: Dispatcher [employer] EDMS Chica [place] JESSI RN hb Sergio Nina RN RN rv Megan Pierre RN RN ha1 Candelaria Tejeda, PAHieu PAHieu sb4 Kishor Portillo MD MD ec2 Svetlana Rivera ae5 Corrections: (The following items were deleted from the chart) 18:52 18:49 90.72 kg; Height 5 ft. 6 in.; BMI: 32.2; Pain 12/19, Adult; hb hb
[2023-07-08 01:52] VITALS: TEMP 99.4; O2SAT 98
[2023-07-08 01:59] VITALS: BP 102/65
--- NOTE | 2023-07-08 13:20 | EKG ---
Test Date: 2023-07-07 Test Time: 19:08:28 Player Development Manager: RV MEASUREMENT RESULTS: Intervals: Rate: 130 TN: 156 QRSD: 92 QT: 386 QTc: 568 [place]: P: 70 TN: 156 QRS: 87 T: 51 INTERPRETIVE STATEMENTS: Sinus tachycardia Possible Right ventricular hypertrophy Nonspecific T wave abnormality Abnormal ECG Compared to ECG 08/15/2020 17:25:25 No significant changes Electronically Signed On 07-08-23 13:18:25 PRACTICE PROFESSIONAL by Brendan Cid
== END ==
LOC: ER 18:31
DX: J10.1 Influenza due to other identified influenza virus with other respiratory manifestations (principal); Z11.52 Encounter for screening for COVID-19
CPT/HCPCS: 0241U; 36415; 71045; 80053; 85025; 87070; 87081; 93005; J1200; J2765; J7030

== ENCOUNTER 2025-02-20 17:30 | Inpatient (IN) | payer BC ==
--- OUTSIDE RECORDS SUMMARY | 2025-02-20 17:35 | XMS REPORT | Continuity of Care Document ---
Author Name Unknown Address [address] [facility]. [address] [place] [address] Organization [facility] [place] Address [address] [facility] [place] [address] Care Team Providers Care Multifocal Button Generator Name Role Phone Crystal Olsen Primary Care Physician + [phone] LESLEY PURI Attending Clinician Unavailable LESLEY PURI Attending Clinician Unavailable Rm1, [facility] Surg Proc Attending Clinician Unavailab MARQUITA Perez Attending Clinician Unavaila Crystal Farah Attending Clinician [phone] CRYSTAL VALENCIA Attending Clinician Unavailable Doctor Unassigned, [place] Attending Clinician U MATT Lester Attending Clinician Unavailable Matt Agarwal MD Attending Clinician [phone] , [facility] Lab Attending Clinician Unavailable Lab, Ang - Db Attending Clinician Unavailable DANILO Attending Clinician Unavailable MARK LEONE Attending Clinician Unavailable GC_SEFRED_Rivera_A Attending Clinician Unavailable Velma Rasheed Attending Clinician [phone] MATT AGARWAL Admitting Clinician Unavailable DANILO Admitting Clinician Unavailable Jese Admitting Clinician Unavailable Payers Payer Name Policy Type Policy Number Effective Date Expirati on Date Source [place] [id number] 2020 00:00:00 Problems Condition Name Condition Details Condition Category Status Onset Date Resolution Date Last Treatment Date Treating Clinician Comments Source Elevated LFTs Elevated LFTs Disease Active 2021-07 00:00: 00 [facility] Obesity (BMI 30-39.9) Obesity (BMI 30-39.9) Disease Active 2021-07 00:00: 00 [facility] No known active problems No known active problems Disease [facility] Allergies, Adverse Reactions, Alerts Allergy Name Allergy Type Status Severity Reaction(s) Onset Date Inactive Date Treating Clinician Comments Source NO KNOWN ALLERGIE S Drug Class Active [facility] Social History Social Habit Start Date Stop Date Quantity Comments Source History SDOH Alcohol Frequency [facility] History SDOH Alcohol Std Drinks [facility] Alcohol Binge [facility] Alcohol intake 2023-08-06 00:00:00 2023-08-06 00:00:00 Current drinker of alcohol (finding) [facility] Alcoholic beverage intake 2023-08-06 00:00:00 2023-08-06 00:00:00 Current drinker of alcohol (finding) [facility] Exposure to SARS-CoV-2 (event) 2022-11-16 00:00:00 2022-11-26 07:07:00 Not sure [facility] History of Social function 2022-11-26 00:00:00 2022-11-26 00:00:00 [facility] Tobacco use and exposure 2021-10-30 00:00:00 2021-10-30 00:00:00 Smokeless tobacco non-user [facility] Alcohol Comment 2021-10-30 00:00:00 2021-10-30 00:00:00 once every couple of weeks. [facility] Sex assigned at 1990 00:00:00 1990 00:00:00 [facility] Smoking Status Start Date Stop Date Source Never smoked tobacco [facility] Medications Ordered Medication Name Filled Medication Name Start Date Stop Date Current Medication? Ordering Clinician Indication Dosage Frequency Signature (SIG) Comments Components Source sulfamethox azole-trime thoprim (BACTRIM DS) 800-160 mg per tablet - 00:00: 00 11-14 00:00 :00 No [id number] 1{tbl} Take 1 tablet by mouth in the morning and 1 tablet in the evening. [facility] montelukast 10 mg tablet 08-06 00:00: 00 Yes [id number] 10mg Take 1 tablet by mouth in the morning. [facility] sulfamethox azole-trime thoprim (BACTRIM DS) 800-160 mg per tablet 08-06 00:00: 00 08-11 00:00 :00 No [id number] 1{tbl} Take 1 tablet by mouth in the morning and 1 tablet in the evening. Do all this for 7 days. [facility] azelastine 137 mcg (0.1 %) nasal spray 11-26 00:00: 00 Yes [id number] 1{spray } Use 1 Surprise in each nostril in the morning and 1 Surprise in the evening. Use in each nostril as directed [facility] montelukast 10 mg tablet 11-26 00:00: 00 08-06 00:00 :00 No [id number] 10mg Take 1 tablet by mouth in the morning. [facility] FLUoxetine 20 mg capsule 12 00:00: 00 Yes TAKE ONE (1) CAPSULE BY MOUTH ONCE A DAY. [facility] propranoloL 20 mg tablet 1-13 00:00: 00 Yes [id number] 20mg Take 1 tablet by mouth in the morning and 1 tablet in the evening. [facility] Quetiapine 150 mg tablet 2021-07 0 14:16: 18 05-01 00:00 :00 No Take by mouth. [facility] QUEtiapine 200 mg tablet 04-01 00:00: 00 Yes TAKE 1 TABLET BY MOUTH EVERY NIGHT WITH A 50MG TABLET [facility] QUEtiapine 50 mg tablet 04-01 00:00: 00 11-14 00:00 :00 No TAKE 1 TABLET BY MOUTH EVERY NIGHT WITH A 200MG TABLET, FOR 250MG TOTAL EACH NIGHT [facility] Quetiapine 150 mg tablet 10-30 14:19: 14 Yes Take by mouth. [facility] mupirocin 2 % ointment 10-30 00:00: 00 05-01 00:00 :00 No [id number] Apply to area(s) 3 (three) times daily. [facility] sulfamethox azole-trime thoprim (BACTRIM DS) 800-160 mg per tablet 10-30 00:00: 00 11-07 04:59 :00 No [id number] 1{tbl} Take 1 tablet by mouth 2 (two) times daily for 7 days. [facility] gabapentin 300 mg capsule 10-27 00:00: 00 05-01 00:00 :00 No [facility] FLUoxetine 20 mg capsule 10-27 00:00: 00 10-30 00:00 :00 No [facility] QUEtiapine 200 mg tablet 10-05 00:00: 00 10-30 00:00 :00 No TAKE 1 TABLET BY MOUTH EVERY NIGHT WITH A 50MG TABLET [facility] QUEtiapine 50 mg tablet 10-05 00:00: 00 10-30 00:00 :00 No TAKE 1 TABLET BY MOUTH EVERY NIGHT WITH A 200MG TABLET, FOR 250MG TOTAL EACH NIGHT [facility] ondansetron (ZOFRAN) 8 mg tablet 1-30 00:00: 00 10-30 00:00 :00 No [id number] 8mg Take 1 tablet by mouth every 8 (eight) hours as needed for Nausea and Vomiting (N/V). [facility] Vital Signs Vital Name Observation Time Observation Value Comments S shyanne Systolic blood pressure 2023-11-15 18:02:00 124 mm[Hg] [facility] Diastolic blood pressure 2023-11-15 18:02:00 80 mm[Hg] [facility] Heart rate 2023-11-15 18:02:00 91 /min [facility] Body temperature 2023-11-15 18:02:00 36.78 Mackenzie [facility] Respiratory rate 2023-11-15 18:02:00 20 /min [facility] Body height 2023-11-15 18:02:[address] [facility] Body weight 2023-11-15 18:02:[address] [facility] BMI 2023-11-15 18:02:00 35.28 kg/m2 [facility] Oxygen saturation in Arterial blood by Pulse oximetry 2023-11-15 18:02:00 98 /min [facility] Systolic blood pressure 2023-11-01 19:13:00 128 mm[Hg] [facility] Diastolic blood pressure 2023-11-01 19:13:00 84 mm[Hg] [facility] Heart rate 2023-11-01 19:13:00 92 /min [facility] Body temperature 2023-11-01 19:13:00 36.78 Mackenzie [facility] Respiratory rate 2023-11-01 19:13:00 20 /min [facility] Body height 2023-11-01 19:13:[address] [facility] Body weight 2023-11-01 19:13:00 94.802 kg [facility] BMI 2023-11-01 19:13:00 34.78 kg/m2 [facility] Oxygen saturation in Arterial blood by Pulse oximetry 2023-11-01 19:13:00 97 /min [facility] Systolic blood pressure 2023-10-20 20:42:00 127 mm[Hg] [facility] Diastolic blood pressure 2023-10-20 20:42:00 79 mm[Hg] [facility] Heart rate 2023-10-20 20:42:00 96 /min [facility] Body temperature 2023-10-20 20:42:00 36.78 Mackenzie [facility] Respiratory rate 2023-10-20 20:42:00 20 /min [facility] Body height 2023-10-20 20:42:[address] [facility] Body weight 2023-10-20 20:42:[address] [facility] BMI 2023-10-20 20:42:00 34.95 kg/m2 [facility] Oxygen saturation in Arterial blood by Pulse oximetry 2023-10-20 20:42:00 98 /min [facility] Systolic blood pressure 2023-08-06 14:48:00 114 mm[Hg] [facility] Diastolic blood pressure 2023-08-06 14:48:00 82 mm[Hg] [facility] Heart rate 2023-08-06 14:48:00 95 /min [facility] Body height 2023-08-06 14:48:[address] [facility] Body weight 2023-08-06 14:48:[address] [facility] BMI 2023-08-06 14:48:00 34.21 kg/m2 Univ [facility] Oxygen saturation in Arterial blood by Pulse oximetry 2023-08-06 14:48:00 99 /min [facility] Systolic blood pressure 2022-11-26 12:30:00 103 mm[Hg] [facility] Diastolic blood pressure 2022-11-26 12:30:00 67 mm[Hg] [facility] Heart rate 2022-11-26 12:30:00 93 /min [facility] Body temperature 2022-11-26 12:30:00 36.89 Mackenzie [facility] Body height 2022-11-26 12:30:[address] [facility] Body weight 2022-11-26 12:30:00 92.398 kg [facility] BMI 2022-11-26 12:30:00 33.90 kg/m2 Univ [facility] Oxygen saturation in Arterial blood by Pulse oximetry 2022-11-26 12:30:00 98 /min [facility] Systolic blood pressure 2022-06-11 20:11:00 106 mm[Hg] [facility] Diastolic blood pressure 2022-06-11 20:11:00 72 mm[Hg] [facility] Heart rate 2022-06-11 20:11:00 87 /min [facility] Body temperature 2022-06-11 20:11:00 36.72 Mackenzie [facility] Respiratory rate 2022-06-11 20:11:00 16 /min [facility] Body height 2022-06-11 20:11:[address] [facility] Body weight 2022-06-11 20:11:[address] [facility] BMI 2022-06-11 20:11:00 33.35 kg/m2 Univ [facility] Oxygen saturation in Arterial blood by Pulse oximetry 2022-06-11 20:11:00 97 /min [facility] Systolic blood pressure 2022-05-01 19:15:00 113 mm[Hg] [facility] Diastolic blood pressure 2022-05-01 19:15:00 79 mm[Hg] [facility] Heart rate 2022-05-01 19:15:00 89 /min [facility] Body temperature 2022-05-01 19:15:00 36.78 Mackenzie [facility] Body height 2022-05-01 19:15:[address] [facility] Body weight 2022-05-01 19:15:00 92.035 kg [facility] BMI 2022-05-01 19:15:00 33.76 kg/m2 Univ [facility] Oxygen saturation in Arterial blood by Pulse oximetry 2022-05-01 19:15:00 100 /min [facility] Systolic blood pressure 2021-10-30 18:56:00 125 mm[Hg] [facility] Diastolic blood pressure 2021-10-30 18:56:00 85 mm[Hg] [facility] Heart rate 2021-10-30 18:56:00 96 /min [facility] Body temperature 2021-10-30 18:56:00 36.89 Mackenzie [facility] Body height 2021-10-30 18:56:[address] [facility] Body weight 2021-10-30 18:56:00 92.534 kg [facility] BMI 2021-10-30 18:56:00 33.95 kg/m2 [facility] Oxygen saturation in Arterial blood by Pulse oximetry 2021-10-30 18:56:00 97 /min [facility] Procedures Procedure Date / Time Performed Performing Clinicia n Source EXTERNAL PROVIDER RECORDS 2021-11-10 05:01:00 Doctor Unassigned, [place] [facility] Encounters Start Date/Time End Date/Time Encounter Type Admission Type Attending Clinicians Care Facility Care Department Encounter ID Source 2023-11-15 13:30:00 2023-11-15 13:30:00 Office Visit Sade [facility] BUILDING 1.2.840.114 350.1.13.10 4.2.7.2.686 [id number] [facility] 2023-11-15 13:30:00 2023-11-15 13:10:14 Outpatient R LESLEY PURI [facility] [id number] [facility] 2023-11-01 14:15:00 2023-11-01 15:04:00 Outpatient R LESLEY PURI [facility] [id number] [facility] 2023-11-01 14:15:00 2023-11-01 15:04:00 Office Visit Lesley Puri Rm1, Adc Surg Proc [facility] BUILDING 1.2.840.114 350.1.13.10 4.2.7.2.686 [id number] [facility] 2023-11-01 14:15:00 2023-11-01 14:15:00 Outpatient R LESLEY PURI [facility] [id number] [facility] 2023-10-20 16:00:00 2023-10-20 16:01:12 Outpatient R LESLEY PURI [facility] [id number] [facility] 2023-10-20 16:00:00 2023-10-20 16:01:12 Office Visit Sade [facility] 1.840.114 350.1.13.10 4.2.7.2.686 [id number] [facility] 2023-10-12 00:00:00 2023-10-12 00:00:00 Patient Secure Msg Crystal Valencia [facility] ZARI?[facility] MEDICAL OFFICE BUILDING 1.2840.114 350.1.13.10 4.2.7.2.686 [id number] [facility] 2023-08-11 00:00:00 2023-08-11 00:00:00 Telephone Crystal Valencia [facility] ZARI?[facility] MED[facility] OFF[facility] BUILDING 1..114 350.1.13.10 4.2.7.2.686 [id number] [facility] 2023-08-06 09:00:00 2023-08-06 12:53:05 Outpatient R CRYSTAL VALENCIA [facility] [id number] [facility] 2023-08-06 09:00:00 2023-08-06 09:30:00 Office Visit Crystal Valencia [facility] ZARI?[facility] MEDICAL OFFICE BUILDING 1..114 350.1.13.10 4.2.7.2.686 [id number] [facility] 2022-12-31 00:00:00 2022-12-31 00:00:00 Patient Secure Msg Doctor Unassigned, [place] [facility] 1.0.114 350.1.13.10 4.2.7.2.686 [id number] [facility] 2022-12-03 00:00:00 2022-12-03 00:00:00 Patient Secure Msg Doctor Unassigned, [place] [facility] OFF[facility] BUILD[facility] 1.0.114 350.1.13.10 4.2.7.2.686 [id number] [facility] 2022-11-27 00:00:00 2022-11-27 00:00:00 Telephone Crystal Valencia [facility] 1.2.840.114 350.1.13.10 4.2.7.2.686 [id number] [facility] 2022-11-26 07:54:01 2022-11-26 23:59:00 Outpatient R CRYSTAL VALENCIA [facility] [id number] [facility] 2022-11-26 07:30:00 2022-11-26 07:52:20 Office Visit Crystal Valencia [facility] 1..840.114 350.1.13.10 4.2.7.2.686 [id number] [facility] 2022-08-24 10:40:00 2022-08-24 10:40:00 Outpatient R MATT AGARWAL [facility] [id number] [facility] 2022-07-23 00:00:00 2022-07-23 00:00:00 Patient Secure [facility] 1..840.114 350.1.13.10 4.2.7.2.686 [id number] [facility] 2022-07-14 00:00:00 2022-07-14 00:00:00 [facility] 1..840.114 350.1.13.10 4.2.7.2.686 [id number] [facility] 2022-07-10 00:00:00 2022-07-10 00:00:00 [facility] 1.2.840.114 350.1.13.10 4.2.7.2.686 [id number] [facility] 2022-07-09 13:00:00 2022-07-09 23:59:00 [id number] 2022-07-08 08:30:00 2022-07-08 23:59:00 [facility] [id number] [facility] 2022-06-30 00:00:00 2022-06-30 00:00:00 Outpatient R CRYSTAL VALENCIA [facility] [id number] [facility] 2022-06-13 00:00:00 2022-06-13 00:00:00 Telephone Crystal Valencia [facility] 1.2.840.114 350.1.13.10 4.2.7.2.686 [id number] [facility] 2022-06-12 00:00:00 2022-06-12 00:00:00 Patient Secure Msg Any [facility] BUILDING 1.2.840.114 350.1.13.10 4.2.7.2.686 [id number] [facility] 2022-06-11 14:45:00 2022-06-11 15:00:00 Ratoprinter Visit 2, Adc Lab Any [facility] NAL BUILDING 1.2.840.114 350.1.13.10 4.2.7.2.686 [id number] [facility] 2022-06-11 14:00:00 2022-06-11 14:29:27 [facility] [id number] 2022-06-11 14:00:00 2022-06-11 14:29:27 Office Visit Any, Qiangjun [facility] NAL BUILDING 1..840.114 350.1.13.10 4.2.7.2.686 [id number] [facility] 2022-05-01 15:00:00 2022-05-01 16:23:07 Ratoprinter Visit Lab, Cory - Crystal Pereira [facility] BUILDING 1..840.114 350.1.13.10 4.2.7.2.686 [id number] [facility] 2022-05-01 14:30:00 2022-05-01 14:53:05 Outpatient R CRYSTAL VALENCIA [facility] [id number] [facility] 2022-05-01 14:30:00 2022-05-01 14:53:05 Office Visit Crystal Valencia [facility] BUILDING 1..840.114 350.1.13.10 4.2.7.2.686 [id number] [facility] 2022-01-02 14:30:00 2022-01-02 14:30:00 Outpatient R CRYSTAL VALENCIA [facility] [id number] [facility] 2021-11-10 14:30:00 2021-11-10 14:30:00 Outpatient R MARK LEONE [facility] [id number] [facility] 2021-11-10 00:00:00 2021-11-10 00:00:00 Orders Only Doctor Unassigned, [place] [facility] 1..840.114 350.1.13.10 4.2.7.2.686 [id number] [facility] 2021-11-06 07:30:00 2021-11-06 07:30:00 Outpatient R CRYSTAL VALENCIA [facility] [id number] [facility] 2021-10-30 14:00:00 2021-10-30 14:26:51 Outpatient R CRYSTAL VALENCIA [facility] [id number] [facility] 2021-10-30 14:00:00 2021-10-30 14:26:51 Office Visit Crystal Valencia [facility] 1.2.840.114 350.1.13.10 4.2.7.2.686 [id number] [facility] 2021-10-30 00:00:00 2021-10-30 00:00:00 Orders Only Doctor Unassigned, [place] [facility] 1.2.840.114 350.1.13.10 4.2.7.2.686 [id number] [facility] 2019-08-10 16:29:04 2019-08-10 22:22:00 Emergency Velma Marquez [facility] 1.2.840.114 350.1.13.10 4.2.7.2.686 [id number] Notes Date/Time Note Provider Source 2023-10-13 16:53:48 Referral ordered. [facility] 2023-08-11 13:07:27 Med sent to wrong Pharmacy. Resent to [facility] in [place]. E OPERATOR [facility] 2023-08-11 12:55:58 Rosmery Ruano is a 33 year old male Pt is calling stating he's med were sent to the wrong pharmacy. He is wanting the meds to be sent to [facility] pharmacy instead of [facility]. Med: sulfamethoxazole-trimethopri m (BACTRIM DS) 800-160 mg per tablet montelukast 10 mg tablet [facility] Pharmacy [place], [place] - [address] [facility], [place] [address] Please advise Thank you E OPERATOR Beverly Da Silva [facility]
[2025-02-20] MEDS ORDERED: NA CHLORIDE 0.9% 2,000 ML ONE (18:31)
[2025-02-20 18:51] LABS: Absolute Lymphocytes (CBC) 2.0 K/uL (0.7-4.9); Hematocrit 45.4 % (39.6-49.0); Hemoglobin 16.1 g/dL (13.6-17.9); MCH 29.8 pg (27.0-35.0); MCHC 35.5 g/dL (32.0-36.0); MCV 83.9 fL (80-100); MPV 8.5 fL (7.6-11.3); Nucleated RBC Absolute Count 0.0 (0-0); Nucleated Red Blood Cells % 0.1 % (0-0); RBC Red Blood Cell Count 5.41 M/uL (4.33-5.43); White Blood Count 15.10 thou/uL (4.3-10.9)
[2025-02-20 19:00] LABS: PCO2, Venous Blood Gas 42 mmHg (41-51); PH, Venous Blood Gas 7.39 (7.32-7.42); PO2, Venous Blood Gas 50 mmHg (25-40)
[2025-02-20 19:01] LABS: Base Excess, VBG 0.4 mmol/L (-2.0-3.0); HCO3, Venous Blood Gas 25.4 mmol/L (21.0-29.0); O2 Saturation, VBG 84.6 % (40.0-70.0)
[2025-02-20 19:11] LABS: ALT/SGPT 55.0 U/L (16-61); Albumin 3.8 g/dL (3.4-5.0); Albumin/Globulin Ratio 0.8 (1.1-1.8); Alkaline Phosphatase 217.0 U/L (45-117); Anion Gap 17.5 mEq/L (5.0-15.0); BUN Blood Urea Nitrogen 15.0 mg/dL (7-18); Bilirubin Indirect, Calculated 0.8 mg/dL (0.2-0.8); Globulin 4.6 g/dL (2.3-3.5); Lipase 31.0 U/L (13-75)
[2025-02-20 19:15] LABS: AST/SGOT 34.0 U/L (15-37); Potassium 3.5 mEq/L (3.5-5.1)
[2025-02-20 19:16] LABS: Glucose Level 484.0 mg/dL (74-106)
--- NOTE | 2025-02-20 20:02 | ER ---
Nurse's Notes [facility] Name: Girish Llamas Age: 34 yrs Sex: Male : 1990 Arrival Date: 02/20/2025 Time: 17:30 Bed 19 Private MD: Diagnosis: Hyperglycemia, unspecified Presentation: 02/20 17:51 Chief complaint: Chief complaint: Abdominal pain, diarrhea, increased thirst, urinary hb frequency, and unintentional weight loss x 2-3 weeks. Coronavirus screen: At this time, the client does not indicate any symptoms associated with coronavirus-19. Ebola Screen: No symptoms or risks identified at this time. Initial Sepsis Screen: Does the patient meet any 2 criteria? No. Patient's initial sepsis screen is negative. Does the patient have a suspected source of infection? No. Patient's initial sepsis screen is negative. Risk Assessment: Do you want to hurt yourself or someone else? Patient reports no desire to harm self or others. Onset of symptoms was January 2025. 17:51 Method Of Arrival: Ambulatory hb 17:56 Acuity: JHONY 2 hb Historical: - Allergies: 17:53 No Known Drug Allergies; hb - PMHx: 17:53 Anxiety; Bipolar disorder; insomnia; hb - PSHx: 17:53 Adnoids; Appendectomy; Tonsillectomy; hb - Immunization history:: Adult Immunizations up to date. - Infectious Disease History:: Denies. - Social history:: Smoking status: Patient denies any tobacco usage or history of. Screenin:00 [facility] ED Fall Risk Assessment (Adult) History of falling in the last 3 months, al5 including since admission No falls in past 3 months (0 pts) Confusion or Disorientation No (0 pts) Intoxicated or Sedated Impaired Gait No (0 pts) Mobility Assist Device Used No (0 pt) Altered Elimination No (0 pt) Score/Fall Risk Level 0 - 2 = Low Risk Oriented to surroundings, Maintained a safe environment. Abuse screen: Denies threats or abuse. Nutritional screening: No deficits noted. Tuberculosis screening: No symptoms or risk factors identified. Assessment: 18:00 General: Appears in no apparent distress. comfortable, Behavior is calm, cooperative, al5 appropriate for age. Pain: Denies pain. Neuro: Level of Consciousness is awake, alert, obeys commands, Oriented to person, place, time, situation. Cardiovascular: Patient's skin is warm and dry. Respiratory: Airway is patent Respiratory effort is even, unlabored, Respiratory pattern is regular, symmetrical. GI: Abdomen is round non-distended, Reports nausea. Derm: Skin is intact, Skin is pink, warm \T\ dry. 19:00 Reassessment: Patient appears in no apparent distress at this time. Patient and/or al5 family updated on plan of care and expected duration. Pain level reassessed. Patient is alert, oriented x 3, equal unlabored respirations, skin warm/dry/pink. 20:00 Reassessment: Patient appears in no apparent distress at this time. Patient and/or al5 family updated on plan of care and expected duration. Pain level reassessed. Patient is alert, oriented x 3, equal unlabored respirations, skin warm/dry/pink. 21:00 Reassessment: Patient appears in no apparent distress at this time. Patient and/or al5 family updated on plan of care and expected duration. Pain level reassessed. Patient is alert, oriented x 3, equal unlabored respirations, skin warm/dry/pink. Vital Signs: 17:51 BP 122 / 89; Pulse 130; Resp 16; Temp 97.3; Pulse Ox 100% on R/A; Weight 78.93 kg; hb Height 5 ft. 4 in. ; Pain 5/10; 19:15 BP 126 / 83; Pulse 107; Resp 16; Pulse Ox 98% on R/A; jb4 20:30 BP 124 / 89; Pulse 110; Resp 16; Pulse Ox 99% ; jb4 17:51 Body Mass Index 29.87 (78.93 kg, 162.56 cm) hb 17:51 Pain Scale: Adult hb ED Course: 17:34 Patient arrived in ED. hb 17:34 Raúl Jerome FNP-C is PHCP. hb 17:53 Arm band placed on. hb 17:57 Triage completed. hb 18:46 Phosphorus Sent. jb4 18:46 Lipase Sent. jb4 18:46 Hepatic Function Sent. jb4 18:46 CBC with Diff Sent. jb4 18:46 Basic Metabolic Panel Sent. jb4 18:46 BETA HYDROXYBUTYRATE Sent. jb4 20:01 Anthony Stout MD is Hospitalizing Provider. dr5 21:00 No provider procedures requiring assistance completed. Patient admitted, IV remains in al5 place. 02/21 00:18 Migdalia Dee, RN is Primary Nurse. al5 01:15 Patient has correct armband on for positive identification. Bed in low position. Call al5 light in reach. Side rails up X 1. Provided Education on: plan of care, need for admission, places to administer insulin, basic education of diabetes. 08:22 Cleveland Alexander MD is Attending Physician. ms3 Administered Medications: 02/20 18:46 Drug: NS 0.9% IV 2000 ml IV at 1000 ml once; to be given as a bolus over 60 minutes jb4 Route: IV; Rate: 1000 ml; Site: right antecubital; 20:30 Follow up: Response: No adverse reaction; IV Status: Completed infusion; IV Intake: al5 2000ml Medication: 02/21 01:15 VIS not applicable for this client. al5 Point of Care Testing: Blood Glucose: 02/20 17:56 Blood Glucose: 496 mg/dL; hb Ranges: Intake: 20:30 IV: 2000ml; Total: 2000ml. al5 Outcome: 20:02 Decision to Hospitalize by Provider. dr5 21:00 Admitted to ER Hold. [facility]. al5 21:00 Condition: stable 21:00 Discharge instructions given to patient, Instructed on the need for admit, Demonstrated understanding of instructions, 02/21 11:08 Patient left the ED. kb3 Signatures: Chica Winchester, RN RN Mele Reilly RN RN jb4 Kelvin Rose DO DO ms3 Fatou Abbott RN RN kb3 Migdalia Dee, JESSI BOWEN al5 Raúl Jerome, LOBSTER CATCHER-C LOBSTER CATCHER-Cdr5
--- NOTE | 2025-02-20 20:03 | EDPHYS ---
Physician Documentation [facility] Name: Girish Llamas Age: 34 yrs Sex: Male : 1990 Arrival Date: 02/20/2025 Time: 17:30 Bed 19 Private MD: ED Physician Cleveland Alexander HPI: 02/20 22:12 This 34 yrs old Male presents to ER via Ambulatory with complaints of dr5 Abdominal Pain. 22:12 The patient presents with abdominal pain that is diffuse. Onset: The symptoms/episode dr5 began/occurred 1.5 week(s) ago. The symptoms are described as achy. Patient is a 34-year-old male with history of bipolar and anxiety coming in with 1-1/2 weeks of of general abdominal pain. Patient reports he has increased thirst and has urinary frequency. Patient reports that he has unintentional weight loss. Patient denies fever, chest pain, nausea, vomiting.. Historical: - Allergies: 17:53 No Known Drug Allergies; hb - PMHx: 17:53 Anxiety; Bipolar disorder; insomnia; hb - PSHx: 17:53 Adnoids; Appendectomy; Tonsillectomy; hb - Immunization history:: Adult Immunizations up to date. - Infectious Disease History:: Denies. - Social history:: Smoking status: Patient denies any tobacco usage or history of. ROS: 22:12 Constitutional: as per hpi dr5 Exam: 22:12 Constitutional: This is a well developed, well nourished patient who is awake, alert, dr5 and in no acute distress. Head/Face: Normocephalic, atraumatic. Eyes: Pupils equal round and reactive to light, extra-ocular motions intact. Lids and lashes normal. Conjunctiva and sclera are non-icteric and not injected. Cornea within normal limits. Periorbital areas with no swelling, redness, or edema. Neck: Trachea midline, no thyromegaly or masses palpated, and no cervical lymphadenopathy. Supple, full range of motion without nuchal rigidity, or vertebral point tenderness. No Meningismus. Chest/axilla: Normal chest wall appearance and motion. Nontender with no deformity. No lesions are appreciated. Cardiovascular: Tachycardic rate and rhythm with a normal S1 and S2. Normal PMI, no JVD. No pulse deficits. Respiratory: Lungs have equal breath sounds bilaterally, clear to auscultation. No rales, rhonchi or wheezes noted. No increased work of breathing, no retractions or nasal flaring. Back: No spinal tenderness. No costovertebral tenderness. Full range of motion. Skin: Warm, dry with normal turgor. Normal color with no rashes, no lesions, and no evidence of cellulitis. MS/ Extremity: Pulses equal, no cyanosis. Neurovascular intact. Full, normal range of motion. Neuro: Awake and alert, GCS 15, oriented to person, place, time, and situation. Cranial nerves II-XII grossly intact. Motor strength 5/5 in all extremities. Sensory grossly intact. Cerebellar exam normal. Normal gait. Vital Signs: 17:51 BP 122 / 89; Pulse 130; Resp 16; Temp 97.3; Pulse Ox 100% on R/A; Weight 78.93 kg; hb Height 5 ft. 4 in. ; Pain 5/10; 19:15 BP 126 / 83; Pulse 107; Resp 16; Pulse Ox 98% on R/A; jb4 20:30 BP 124 / 89; Pulse 110; Resp 16; Pulse Ox 99% ; jb4 17:51 Body Mass Index 29.87 (78.93 kg, 162.56 cm) hb 17:51 Pain Scale: Adult hb MDM: 17:41 Medical Screening Exam initiated dr5 22:12 Differential diagnosis: diverticulitis, gastritis, urinary tract infection, New Onset dr5 Diabetes. Data reviewed: vital signs, nurses notes, lab test result(s), CBC, white blood cell count, hemoglobin, hematocrit, platelets, electrolytes, sodium, potassium, chloride, serum bicarbonate, BUN, creatinine, serum glucose, beta-hydroxybutyrate. Consideration of Admission/Observation Patient was admitted/placed on observation. Management of patient was discussed with the following: Hospitalist: Dr. Stout. I considered the following discharge prescriptions or medication management in the emergency department I discussed and recommended Over The Counter medications, Medications were administered in the Emergency Department. See MAR. Historians other than the Patient: Anxiety, Bipolar Disorder, Insomnia. Care significantly affected by the following chronic conditions:. Care significantly affected by the following Social Determinants of Health: Poor access to healthcare and/or lack of insurance, Poor access to transportation, Problems related to employment. Counseling: I had a detailed discussion with the patient and/or guardian regarding the historical points, exam findings, and any diagnostic results supporting the discharge/admit diagnosis, the presence of at least one elevated blood pressure reading (>120/80) during this emergency department visit, lab results, radiology results, the need for further work-up and treatment in the hospital, to return to the emergency department if symptoms worsen or persist or if there are any questions or concerns that arise at home. 22:22 Medication response: NS. Response to treatment: the patient's symptoms have markedly dr5 improved after treatment. ED course: Patient not in DKA. Will not start insulin drip at this time. Will admit to Dr. Stout. 2 L of fluid given with improvement of symptoms will admit to hospitalist.. 02/20 18:01 Order name: BETA HYDROXYBUTYRATE; Complete Time: 19:23 [facility] 02/20 18:01 Order name: Basic Metabolic Panel; Complete Time: 19:23 [facility] 02/20 18:01 Order name: CBC with Diff; Complete Time: 19:03 [facility] 02/20 18:01 Order name: Hepatic Function; Complete Time: :23 [facility] 02/20 18:01 Order name: Lipase; Complete Time: 19:23 [facility] 02/20 18:01 Order name: Phosphorus; Complete Time: 19:23 [facility] 02/20 18:01 Order name: VBG; Complete Time: 19:03 [facility] 02/20 18:09 Order name: Glucose, Ancillary Testing; Complete Time: 18:10 EDSD 02/20 20:23 Order name: Glucose, Ancillary Testing; Complete Time: 20:27 EDMS 02/20 20:56 Order name: CBC with Automated Diff EDSD 02/20 20:56 Order name: CBC with Automated Diff; Complete Time: 09:17 EDMS 02/20 20:56 Order name: Comprehensive Metabolic Panel EDSD 02/20 20:56 Order name: Comprehensive Metabolic Panel; Complete Time: 09:17 EDMS 02/21 00:44 Order name: Glucose, Ancillary Testing; Complete Time: 00:44 EDMS 02/21 05:58 Order name: Glucose, Ancillary Testing; Complete Time: 09:17 EDMS 02/21 07:26 Order name: Magnesium; Complete Time: 09:17 EDMS 02/21 07:39 Order name: Hemoglobin A1c; Complete Time: :17 EDMS 02/21 09:38 Order name: Glucose, Ancillary Testing; Complete Time: 09:17 EDSD 02/20 18:01 Order name: Cardiac monitoring; Complete Time: 19:07 dr5 02/20 18:01 Order name: EKG - Nurse/Tech; Complete Time: 19:07 dr5 02/20 18:01 Order name: IV Saline Lock; Complete Time: 18:46 dr5 02/20 18:01 Order name: NPO; Complete Time: 18:46 dr5 02/20 18:01 Order name: O2 Per Protocol; Complete Time: 18:46 dr5 02/20 18:01 Order name: O2 Sat Monitoring; Complete Time: 18:46 dr5 EC:58 Rate is 101 beats/min. Rhythm is regular. QRS [place] is Normal. NC interval is normal at dr5 138 msec. QRS interval is normal at 98 msec. QT interval is normal at 344 msec. Clinical impression: Sinus tachycardia. Administered Medications: 18:46 Drug: NS 0.9% IV 2000 ml IV at 1000 ml once; to be given as a bolus over 60 minutes jb4 Route: IV; Rate: 1000 ml; Site: right antecubital; 20:30 Follow up: Response: No adverse reaction; IV Status: Completed infusion; IV Intake: al5 2000ml Point of Care Testing: Blood Glucose: 17:56 Blood Glucose: 496 mg/dL; hb Ranges: Critical Glucose Levels:Adult <50 mg/dl or >400 mg/dl <40 mg/dl or >180 mg/dl Disposition Summary: 02/20/25 20:02 Hospitalization Ordered Notes: Hospitalization Status: Inpatient Admission dr5 Provider: Anthony Stout Condition: Stable dr5 Problem: new dr5 Symptoms: have worsened dr5 Bed/Room Type: Standard dr5 Location: Telemetry/MedSurg (Inpatient)(02/21/25 09:58) bd Room Assignment: 419(02/21/25 09:58) bd Diagnosis - Hyperglycemia, unspecified dr5 Forms: - Medication Reconciliation Form dr5 - SBAR form dr5 - Leadership Thank You Letter dr5 Signatures: Dispatcher [employer] EDJanie Baca Cindy, RN RN Chica Winchester RN RN hb Bryson, James, RN RN jb4 Raúl Jerome FNP-C ASSISTANT COMMUNITY MANAGER-5 Migdalia Dee RN al5 Corrections: (The following items were deleted from the chart) 18:01 18:01 BETA HYDROXYBUTYRATE+C.LAB.BRZ ordered. EDMS EDMS 18:01 18:01 BASIC METABOLIC PANEL+C.LAB.BRZ ordered. EDMS EDMS 18:01 18:01 CBC+H.LAB.BRZ ordered. EDMS EDMS 18:01 18:01 HEPATIC FUNCTION+C.LAB.BRZ ordered. EDMS EDMS 18:01 18:01 LIPASE+C.LAB.BRZ ordered. EDMS EDMS 18:01 18:01 PHOSPHORUS+C.LAB.BRZ ordered. EDMS EDMS 18:01 18:01 Venous Blood Gas+RC.LAB.BRZ ordered. EDMS EDMS 20:59 20:02 Telemetry/MedSurg (Inpatient) dr5 cg 20:59 20:02 dr5 cg 02/21 09:58 08 20:59 [facility] ER HOLD cg bd 02/21 09:58 02/20 20:59 ERHOLD- cg bd
[2025-02-20] MEDS ORDERED: ONDANSETRON 4 MG/2 ML VIAL IV PRN (20:52)
--- NOTE | 2025-02-20 20:52 | P.HP ---
Certification for Inpatient Patient admitted to: Inpatient With expected LOS: >2 Midnights Practitioner: I am a practitioner with admitting privileges, knowledge of patient current condition, hospital course, and medical plan of care. Services: Services provided to patient in accordance with Admission requirements found in Title 42 Section 412.3 of the Code of Federal Regulations Patient History Date of Service: 02/20/25 Reason for admission: Hyperglycemia History of Present Illness: 34-year-old male with past medical history of anxiety, bipolar disorder, insomnia, ADHD who was brought to ER with generalized weakness and extreme fatigue. Patient denies any fever or chills. No nausea vomiting or diarrhea. No chest pain or shortness of breath. No sick contacts. Patient was assessed in the ER and was found to have hyperglycemia and was admitted for further management. Patient denies any previous history of diabetes Allergies No Known Drug Allergies Allergy (Verified 03/30/18 13:14) Unknown Home medications list reviewed: Yes Home Medications: Amox/Clavulanate [Augmentin 875-125 Tab] 875 mg PO BID #12 tab 03/30/18 Codeine/APAP [Tylenol W/Codeine #3 tab] 1 tab PO Q6HP PRN #30 tab 03/30/18 Quetiapine [Seroquel] 300 mg PO BEDTIME 03/30/18 - Past Medical/Surgical History Diabetic: No Past Medical History: Reviewed- Non-Contributory Past Surgical History: Reviewed- Non-Contributory -: Tonsillectomy - Social History Smoking Status: Never smoker Alcohol use: No CD- Drugs: No Caffeine use: Yes Review of Systems 10-point ROS is otherwise unremarkable Other: Constitutional: Reports: generalized weakness. Skin: Denies: rash. Allergy/Immun: Denies: rhinorrhea, sneezing. Eyes: Denies: visual loss/blurred. ENT: Denies: earache, nasal congestion. Respiratory: Denies: non productive cough. Cardiovascular: Denies: chest pain, palpitations. GI: Denies: diarrhea, nausea. : Denies: dysuria. Musculoskeletal: Reports: arthritis. Denies: extremity pain. Heme: Denies: bleeding. Endocrine: Denies: polydipsia. Neuro: Reports: dizziness, gait problem, lightheaded, spinning sensation. Psych: Reports: anxiety. All systems rev & neg: except as noted Physical Examination - Vital Signs Temperature: 97.2 F Blood Pressure: 136/78 Pulse: 76 Respirations: 18 Pulse Ox (%): 94 - Physical Exam General: Alert, In no apparent distress, Oriented x3 HEENT: Atraumatic, Normocephalic Neck: Supple Respiratory: Clear to auscultation bilaterally, Normal air movement Cardiovascular: No edema, Regular rate/rhythm, Normal S1 S2 Capillary refill: <2 Seconds Gastrointestinal: Soft and benign, W/out hepatosplenomegaly Musculoskeletal: No clubbing, No swelling Integumentary: No rashes Neurological: Other (Alert awake nonfocal) Lymphatics: No axilla or inguinal lymphadenopathy - Studies Laboratory Data (last 24 hrs) 02/20/25 02/20/25 18:40 18:40 WBC 15.10 H Hgb 16.1 Hct 45.4 Plt Count 332 Sodium 127 L Potassium 3.5 BUN 15 Creatinine 0.84 Glucose 484 H* Phosphorus 3.4 Total Bilirubin 1.0 AST 34 ALT 55 Alkaline Phosphatase 217 H Lipase 31 Assessment and Plan - Plan New onset diabetes Hyperglycemia Hyponatremia Dehydration ADHD Bipolar disorder Anxiety Plan Aggressive hydration Insulin sliding scale Will add on basal insulin Electrolytes monitor and replace accordingly Continue home medications and titrate as needed GI/DVT prophylaxis Advanced directive full code Discharge Plan: Home Plan to discharge in: 48 Hours - Advance Directives Does patient have a Living Will: No Does patient have a Durable POA for Healthcare: No - Code Status/Comfort Care Code Status: Full Code Time Spent Managing Pts Care (In Minutes): 48
[2025-02-20] MEDS ORDERED: GLUCAGON 1 MG/VIAL IM PRN (20:55)
[2025-02-20] MEDS ORDERED: D10W 125 ML IV PRN (20:55)
[2025-02-20] MEDS ORDERED: CODEINE 30MG/APAP 300MG TAB PO PRN (20:56)
[2025-02-20] MEDS: NA CHLORIDE 0.9% 1,000 ML IV SCH (21:00)
[2025-02-20] MEDS: QUETIAPINE 100MG TAB PO SCH (21:00)
[2025-02-20] MEDS ORDERED: NA CHLORIDE 0.9% 1,000 ML ONE (21:16)
[2025-02-20] MEDS: INSULIN GLARGINE 100 UNIT/ML SQ SCH (22:30)
[2025-02-20 23:48] VITALS: BMI 29.8
[2025-02-21] MEDS ORDERED: INSULIN REGULAR (HUMAN) 100 UNIT/ML ONE ×3 (00:58→09:32)
[2025-02-21 04:41] LABS: Absolute Lymphocytes (CBC) 2.7 K/uL (0.7-4.9); Hematocrit 37.7 % (39.6-49.0); Hemoglobin 13.6 g/dL (13.6-17.9); MCH 30.3 pg (27.0-35.0); MCHC 36.2 g/dL (32.0-36.0); MCV 83.6 fL (80-100); MPV 8.3 fL (7.6-11.3); Nucleated RBC Absolute Count 0.0 (0-0); Nucleated Red Blood Cells % 0.0 % (0-0); RBC Red Blood Cell Count 4.50 M/uL (4.33-5.43); White Blood Count 10.10 thou/uL (4.3-10.9)
[2025-02-21 04:57] LABS: ALT/SGPT 48.0 U/L (16-61); AST/SGOT 19.0 U/L (15-37); Albumin 2.9 g/dL (3.4-5.0); Albumin/Globulin Ratio 0.8 (1.1-1.8); Alkaline Phosphatase 161.0 U/L (45-117); Anion Gap 12.0 mEq/L (5.0-15.0); BUN Blood Urea Nitrogen 12.0 mg/dL (7-18); Globulin 3.6 g/dL (2.3-3.5); Glucose Level 289.0 mg/dL (74-106); Potassium 3.0 mEq/L (3.5-5.1)
[2025-02-21] MEDS: INSULIN REGULAR (HUMAN) 100 UNIT/ML SQ SCH ×2 (07:30)
[2025-02-21] MEDS ORDERED: NA CHLORIDE 0.9% 1,000 ML ONE (08:23)
--- NOTE | 2025-02-21 11:31 | P.PN ---
Date of Service: 02/21/25 Subjective: Feeling better Decreased polyuria and polydipsia Physical Exam: GEN: Alert, oriented, NAD CV: Regular rate and rhythm, no edema Pulm: Nonlabored respirations on room air, clear bilaterally ABD: soft, nontender, nondistended Neuro: Normal speech, normal affect Problem List: New onset diabetes with hyperglycemia Hypokalemia Dehydration ADHD/Anxiety/Bipolar Disorder New onset diabetes with hyperglycemia Hypokalemia Dehydration on admission, presents with intractable abdominal pain associated with diarrhea, increased thirst, urinary frequency, and unintentional weight loss (x2-3 weeks) Denies prior history of diabetes Patient severely hyperglycemic on arrival with glc ~500 was in 300s on lab review when in ER 12/2024 accu-cheks, SSI Continue semglee 10u daily; titrate as needed A1c 12.3; will need insulin script on discharge continue IV hydration unclear etiology given age of onset, A1c of 12.3, implies ongoing for a few months. has been on chronic seroquel which can lead to some degree of hyperglycemia but unlikely to be sole cause possibly latent autoimmune diabetes in adults vs type 1 ADHD/Anxiety/Bipolar Disorder confirm home meds, restart as appropriate resume home Seroquel VTE: SCD Code: Full Dispo: Home, ~24hrs Time Spent Managing Pts Care (In Minutes): 55
[2025-02-21] MEDS: ACETAMINOPHEN 325 MG TABLET PO PRN (16:14)
[2025-02-21] MEDS: INSULIN GLARGINE 100 UNIT/ML SQ SCH (21:00)
[2025-02-22 06:11] LABS: ALT/SGPT 42.0 U/L (16-61); AST/SGOT 32.0 U/L (15-37); Albumin 2.7 g/dL (3.4-5.0); Albumin/Globulin Ratio 0.8 (1.1-1.8); Alkaline Phosphatase 145.0 U/L (45-117); Anion Gap 11.2 mEq/L (5.0-15.0); BUN Blood Urea Nitrogen 4.0 mg/dL (7-18); Globulin 3.5 g/dL (2.3-3.5); Glucose Level 223.0 mg/dL (74-106); Magnesium 2.0 mg/dL (1.6-2.4); Potassium 3.2 mEq/L (3.5-5.1); Thyroid Stimulating Hormone 1.32 uIU/mL (0.358-3.740)
[2025-02-22] MEDS: POTASSIUM CL SA 10 MEQ TAB PO ONE (08:39)
--- NOTE | 2025-02-22 09:01 | P.DS ---
Admission Date: 02/20/25 Discharge Date: 02/22/25 Disposition: ROUTINE DISCHARGE Discharge Condition: GOOD Reason for Admission: Hyperglycemia Brief History of Present Illness: 34 yo M, PMH: anxiety, bipolar disorder, insomnia, ADHD Patient was brought to ER with generalized weakness and extreme fatigue. Patient denies any fever or chills. No nausea vomiting or diarrhea. No chest pain or shortness of breath. No sick contacts. Patient was assessed in the ER and was found to have hyperglycemia and was admitted for further management. Patient denies any previous history of diabetes Hospital Course: Problem List: New onset diabetes with hyperglycemia Hypokalemia, improving Dehydration ADHD/Anxiety/Bipolar Disorder Physician discharge instructions: Patient presented with intractable abdominal pain associated with diarrhea, polyuria, polydipsia, and unintentional weight loss secondary to new onsetdiabetes. Patient's glucose levels were noted to be around 500 on arrival ion the ER. A1c was 12.3 this hospitalization. He was placed on insulin sliding scale and started on 10 units semglee insulin. Semglee was titrated up until glucose levels were more consistently < 200. Labwork in 12/2024 noted glucose in high 300s. Unclear exact etiology, type 2 vs possibly latent autoimmune diabetes in adults vs type 1. He has been on chronic Seroquel which can lead to some degree of hyperglycemia but unlikely to be the sole cause. He did report recently increasing this dose ~1 month ago. This may be contributing to his hyperglycemia. Discussed with patient he will need to continue insulin on discharge and will need to closely monitor levels to reduce further episodes. Discuss with his PCP / Psychiatry regarding Seroquel as well. Patient was feeling better close to his normal self, abdominal pain improved and was deemed stable for discharge. Check blood glucose levels first thing in the morning (fasting) and before meals. Keep a written log of readings to bring to follow up appointments for further adjustments. If fasting glucose is consistently greater than 200, increase dose by 2 units every 3 days until glucose is < 200. If fasting glucose is >250, increase insulin dose by 5 units. Follow up with PCP with glucose log in ~1 week for further management. Medications: Insulin 20 units at bedtime Follow up: PCP 3-5 days Please call to schedule / confirm appointments Physical Exam: GEN: Alert, oriented, NAD CV: Regular rate and rhythm, no edema Pulm: Nonlabored respirations on room air, clear bilaterally ABD: soft, nontender, nondistended Neuro: Normal speech, normal affect Vital Signs/Physical Exam: Temp Pulse Resp BP Pulse Ox 98.1 F 80 17 120/70 98 02/22/25 04:00 02/22/25 04:00 02/22/25 04:00 02/22/25 04:00 02/22/25 04:00 Laboratory Data at Discharge: WBC 10.10 thou/uL (4.3-10.9) 02/21/25 04:25 Hgb 13.6 g/dL (13.6-17.9) D 02/21/25 04:25 Hct 37.7 % (39.6-49.0) L 02/21/25 04:25 Plt Count 253 thou/uL (152-406) 02/21/25 04:25 Sodium 138 mEq/L (136-145) 02/22/25 05:29 Potassium 3.2 mEq/L (3.5-5.1) L 02/22/25 05:29 BUN 4 mg/dL (7-18) L 02/22/25 05:29 Creatinine 0.49 mg/dL (0.70-1.30) L 02/22/25 05:29 Glucose 223 mg/dL (74-106) H 02/22/25 05:29 Phosphorus 3.4 mg/dL (2.5-4.9) 02/20/25 18:40 Magnesium 2.0 mg/dL (1.6-2.4) 02/22/25 05:29 Total Bilirubin 0.5 mg/dL (0.2-1.0) 02/22/25 05:29 AST 32 U/L (15-37) 02/22/25 05:29 ALT 42 U/L (16-61) 02/22/25 05:29 Alkaline Phosphatase 145 U/L (45-117) H 02/22/25 05:29 Lipase 31 U/L (13-75) 02/20/25 18:40 Home Medications: Codeine/APAP [Tylenol W/Codeine #3 tab] 1 tab PO Q6HP PRN #30 tab 03/30/18 Quetiapine [Seroquel*] 200 mg PO BEDTIME 03/30/18 Blood Sugar Diagnostic [Blood Glucose Test] 1 each .ROUTE TID 30 Days #90 strip 02/22/25 Blood-Glucose Meter [Blood Glucose Meter] 1 each XX DAILY #1 ea 02/22/25 Insulin Glargine-Yfgn [Semglee (Yfgn) Pen] 20 unit SQ BEDTIME 30 Days #900 unit 02/22/25 Lancets [Easy Comfort Lancets] 1 each .ROUTE TID 30 Days #90 ea 02/22/25 New Medications: Blood-Glucose Meter [Blood Glucose Meter] 1 each XX DAILY #1 ea Blood Sugar Diagnostic [Blood Glucose Test] 1 each .ROUTE TID 30 Days #90 strip Lancets [Easy Comfort Lancets] 1 each .ROUTE TID 30 Days #90 ea Insulin Glargine-Yfgn [Semglee (Yfgn) Pen] 20 unit SQ BEDTIME 30 Days #900 unit Physician Discharge Instructions: Physician discharge instructions: Patient presented with intractable abdominal pain associated with diarrhea, polyuria, polydipsia, , and unintentional weight loss secondary to new onsetdiabetes. Patient's glucose levels were noted to be around 500 on arrival ion the ER. A1c was 12.3 this hospitalization. He was placed on insulin sliding scale and started on 10 units semglee insulin. Semglee was titrated up until glucose levels were more consistently < 200. Labwork in 12/2024 noted glucose in high 300s. Unclear exact etiology, type 2 vs possibly latent autoimmune diabetes in adults vs type 1. He has been on chronic Seroquel which can lead to some degree of hyperglycemia but unlikely to be the sole cause. He did report recently increasing this dose ~1 month ago. This may be contributing to his hyperglycemia. Discussed with patient he will need to continue insulin on discharge and will need to closely monitor levels to reduce further episodes. Discuss with his PCP / Psychiatry regarding Seroquel as well. Patient was feeling better close to his normal self, abdominal pain improved and was deemed stable for discharge. Check blood glucose levels first thing in the morning (fasting) and before meals. Keep a written log of readings to bring to follow up appointments for further adjustments. If fasting glucose is consistently greater than 200, increase dose by 2 units every 3 days until glucose is < 200. If fasting glucose is >250, increase insulin dose by 5 units. Follow up with PCP with glucose log in ~1 week for further management. Medications: Insulin 20 units at bedtime Follow up: PCP 3-5 days Please call to schedule / confirm appointments Followup: NONE,NONE [Primary Care Provider] -
[2025-02-22 09:40] VITALS: BP 123/69; TEMP 97.7
[2025-02-22 10:50] VITALS: O2SAT 99
== END 2025-02-22 10:41 | disposition home or self-care (01) | DRG 638 ==
LOC: ER 17:30 → ERHOLD 20:52 → 4TH 02-21 10:47
PROVIDERS: ADMIT Family Medicine; ATTEND Hospitalist
DX: E11.65 Type 2 diabetes mellitus with hyperglycemia (principal); E87.1 Hypo-osmolality and hyponatremia; E86.0 Dehydration; E87.6 Hypokalemia; F31.9 Bipolar disorder, unspecified; F41.9 Anxiety disorder, unspecified; G47.00 Insomnia, unspecified; F90.9 Attention-deficit hyperactivity disorder, unspecified type; Z79.4 Long term (current) use of insulin; Z56.9 Unspecified problems related to employment; Z59.82 Transportation insecurity; Z59.71 Insufficient health insurance coverage; Z90.49 Acquired absence of other specified parts of digestive tract; Z79.899 Other long term (current) drug therapy
CPT/HCPCS: 36415; 80048; 80053; 80076; 82010; 82803; 82947; 83036; 83690; 83735; 84100; 84439; 84443; 85025; 93005; 96360; 96361; 99285; J1815; J7030